=== PATIENT | male | born 1940 | race Caucasian/White ===

== ENCOUNTER 2016-05-22 16:40 | Inpatient (IN) | payer MEDICARE, OTHER ==
[~2016-05-22] VITALS: Ht 172.7 cm; Wt 79.5 kg
[2016-05-22] MEDS ORDERED: ACETAMINOPHEN 650 MG SUPP PR STA (16:47)
[2016-05-22] MEDS ORDERED: SODIUM CHLORIDE 0.9% 1L BAG IV* STA (16:47)
[2016-05-22] MEDS ORDERED: VANCOMYCIN 1 GM (PMX) 250 ML IVPB ONE (17:00)
[2016-05-22] MEDS ORDERED: CEFEPIME 1GM/50 ML (PMX) 50 ML IVPB ONE (17:00)
[2016-05-22] MEDS ORDERED: LIDOCAINE 1% (MDV) 20 ML INJ SC ONE (17:00)
[2016-05-22 17:10] LABS: HEMOGLOBIN 15.3 g/dl (14.0-18.0); MEAN CORPUSCULAR HEMOGLOBIN 31.9 pg (29.0-33.0); MEAN CORPUSCULAR HGB CONC 33.9 g/dl (32.0-37.0); MEAN CORPUSCULAR VOLUME 94.1 fl (82.0-101.0); MEAN PLATELET VOLUME 9.1 fl (7.4-10.4); PLATELET COUNT 274 10^3/UL (140-440); RED BLOOD COUNT 4.78 10^6/ul (4.70-6.10); RED CELL DISTRIBUTION WIDTH 14.6 % (11.5-14.5); UNCORRECTED WBC 34.5 10^3/ul (4.8-10.8); WHITE BLOOD COUNT 34.5 10^3/ul (4.8-10.8)
[2016-05-22 17:18] LABS: CONDITION 1; LH ANALYZER COMMENTS 1; SUSPECT 1
[2016-05-22 17:21] LABS: ADD UMIC YES; INR 1.16; POTASSIUM 5.4 mmol/L (3.5-5.1); PROTIME 14.8 Sec (12.2-14.2); PT RATIO 1.2; URINE BILIRUBIN (Dip) 2+ (NEGATIVE); URINE BLOOD (Dip) 3+ (NEGATIVE); URINE COLOR DK. RED (YELLOW); URINE KETONES (Dip) TRACE (NEGATIVE); URINE LEUKOCYTE ESTERASE (Dip) 3+ (NEGATIVE); URINE NITRITE (Dip) POSITIVE (NEGATIVE); URINE TOTAL PROTEIN (Dip) 4+ (NEGATIVE); URINE UROBILINOGEN (Dip) 2.0 E.U./dL (0.1-1.0)
--- NOTE | 2016-05-22 17:21 | RADRPT ---
PROCEDURE: XR Chest. CLINICAL INDICATION: Cough. Sepsis. TECHNIQUE: Single frontal view. COMPARISON: None. FINDINGS: There is mild atelectasis at the lung bases. The lungs are otherwise clear. There is a right subcl malorie vein catheter with the tip in the cavoatrial junction. The heart size is normal. There is no pleural effusion. There is no pneumothorax. IMPRESSION: 1. Mild atelectasis at the lung bases. 2. Right subclavian vein catheter tip in the cavoatrial junction. 3. No pneumothorax. 4. Otherwise normal chest x-ray. RPTAT: QQ .Kevin Montgomery MD, MD Date Time Electronically viewed and signed by .Kevin Montgomery MD, MD on 05/22/2016 17:21 .R/
[2016-05-22 17:22] LABS: PARTIAL THROMBOPLASTIN TIME 35.6 Sec (25.0-35.0)
[2016-05-22 17:23] LABS: ALBUMIN/GLOBULIN RATIO 0.83; BILIRUBIN,INDIRECT 0.8 mg/dl (0-1.1); BILIRUBIN,TOTAL 0.8 mg/dl (0.2-1.3); CREATININE 3.45 mg/dl (0.61-1.24); TOTAL PROTEIN 6.6 g/dl (6.1-8.1)
[2016-05-22 17:24] LABS: CALCIUM 9.3 mg/dl (8.4-10.2)
[2016-05-22 17:31] LABS: BACTERIA,URINE MANY; ICTOTEST NEGATIVE (NEGATIVE); SQUAMOUS EPITHELIAL CELL,UR RARE; URINE RBCS >200 /HPF ([, 0])
[2016-05-22] MEDS ORDERED: ONDA-43 PO (17:34)
[2016-05-22] MEDS ORDERED: LORA0.5T PO (17:35)
[2016-05-22] MEDS ORDERED: ACET325T33 PO (17:37)
[2016-05-22] MEDS ORDERED: OXYC-279 PO (17:39)
[2016-05-22] MEDS ORDERED: FAMO20TA18 PO (17:40)
[2016-05-22] MEDS ORDERED: TYL500 PO (17:40)
[2016-05-22] MEDS ORDERED: ATOR40TA68 PO (17:41)
[2016-05-22 17:44] LABS: TROPONIN-I 0.769 ng/ml (0.00-0.12)
[2016-05-22] MEDS ORDERED: METO25TA7 PO (17:45)
[2016-05-22] MEDS ORDERED: ENOX40DI14 SC (17:46)
[2016-05-22] MEDS ORDERED: BENA1TAB PO (17:50)
[2016-05-22] MEDS ORDERED: BENA20TA65 PO (17:51)
[2016-05-22] MEDS ORDERED: BENA10TA48 PO (17:53)
[2016-05-22] MEDS ORDERED: ASPIRIN 81 MG TAB PO ONE (18:00)
[2016-05-22 18:13] LABS: LYMPHOCYTES # 1.4 10^3/ul (0.8-2.9); MONOCYTE # 1.7 10^3/ul (0.3-0.9); NEUTROPHIL # 22.8 10^3/ul (1.6-7.5)
[2016-05-22] MEDS ORDERED: ASPIRIN 300 MG SUPP PR ONE (18:30)
--- NOTE | 2016-05-22 19:48 | ERA ---
ER Documentation Chief Complaint Date/Time DATE: 05/22/16 TIME: 19:33 Chief Complaint bib ra 39 for hypotension, fever and sob HPI 75-year-old man brought in by EMS from alf for fever, cough, and hypotension. Systolic blood pressure was about 76 mmHg at the scene. He was recently diagnosed and treated for urinary tract infection. He has had no vomiting or diarrhea no complaints of chest pain or shortness of breath. HPI was supplemented by reviewing past medical history, reviewing alf notes , speaking to EMS at the scene, and nursing staff. ROS All systems reviewed and are negative except as per history of present illness. Medications Home Meds Reported Medications Benazepril Hcl* (Benazepril Hcl*) 10 Mg Tablet, 10 MG PO DAILY, #30 TAB HOLD IF SBP<110, HR<60 05/22/16 Enoxaparin Sodium* (Lovenox*) 40 Mg/0.4 Ml Syringe, 40 MG SC Q24H, SYR 05/22/16 Metoprolol Succinate* (Toprol XL*) 25 Mg Tab.sr.24h, 25 MG PO BID, #30 TAB HOLD IF SBP<110,HR<60 05/22/16 Atorvastatin* (Atorvastatin*) 40 Mg Tablet, 40 MG PO QHS, #30 TAB 05/22/16 Famotidine* (Famotidine*) 20 Mg Tablet, 20 MG PO BID, #60 TAB 05/22/16 Acetaminophen* (Tylenol*) 500 Mg Tab, 1000 MG PO Q4H Y for PAIN 4-610, TAB 05/22/16 Oxycodone HCl/Acetaminophen (Percocet 5-325 mg Tablet) 1 Each Tablet, 1 EACH PO Q3H Y for PAIN 7-9/10, TAB 05/22/16 Acetaminophen* (Tylenol*) 325 Mg Tablet, 650 MG PO Q4H Y for MILD PAIN LEVEL 1-3 , TAB FOR FEVER 100 AND ABOVE 05/22/16 Lorazepam* (Lorazepam*) 0.5 Mg Tablet, 0.5 MG PO Q6 Y for ANXIETY, TAB 05/22/16 Ondansetron Hcl* (Zofran*) 4 Mg Tab, 4 MG PO Q4H Y for NAUSEA AND OR VOMITING, TAB 05/22/16 Discontinued Reported Medications Benazepril Hcl* (Lotensin*) 20 Mg Tablet, 20 MG PO DAILY, #30 TAB 05/22/16 Benazepril/Hydrochlorothiazide (Lotensin Hct 10-12.5 mg Tablet) 1 Each Tablet, 1 TAB PO DAILY, #30 TAB HOLD IF SBP<110,HR<60 05/22/16 Allergies Allergies: Coded Allergies: No Known Allergy (Unverified , 05/22/16) PMhx/Soc History of recent CVA with dense left hemiparesis, coronary artery disease with previous myocardial infarction, ischemic cardiomyopathy with a left ventricular ejection fraction of 25%, peripheral vascular disease, chronic kidney disease, hypertension History of Surgery: Yes (orif) Anesthesia Reaction: No Hx Neurological Disorder: Yes (cva c left side weakness) Hx Respiratory Disorders: No Hx Cardiac Disorders: Yes (cad, previous mi, hld, htn) Hx Psychiatric Problems: No Hx Alcohol Use: No Hx Substance Use: No Hx Tobacco Use: No Smoking Status: Never smoker FmHx Family History: No diabetes Physical Exam Vitals Vital Signs Date Time Temp Pulse Resp B/P Pulse Ox O2 Delivery O2 Flow Rate FiO2 05/22/16 17:28 87/54 05/22/16 17:22 95 20 68/53 98 Nasal Cannula 4.0 05/22/16 17:00 Nasal Cannula 4 05/22/16 17:00 98.5 126 33 79/52 95 Physical Exam GENERAL: Elderly, chronically debilitated man, dyspneic, febrile, hypotensive HEENT: Dry mucous membrane, pink conjunctiva, no cervical spine tenderness or step-off deformities, no goiter, no jaundice or icterus, extraocular movements intact without pain. No submandibular induration, and no pharyngeal erythema NEURO: Alert and oriented 1, able to slowly answer simple questions and follow simple commands, left upper and lower extremity hemiparesis, no facial asymmetry , pupils equal round reactive to light CARDIAC: Tachycardic and regular, no murmurs rubs or gallops LUNGS: Clear bilaterally no wheezing crackles or stridor ABDOMEN: Soft nontender, no guarding, no rigidity, no rebound, no psoas sign no obturator sign. Normoactive bowel sounds SKIN: Warm and dry to touch, no abrasions, contusions, or hematomas, no lacerations, no ecchymosis, no target lesions, and without ulcers EXTREMITIES: No clubbing cyanosis or edema, calves are bilaterally symmetrical, no Homans sign, no popliteal cord sign. Distal pulses equal and bilateral PSYCH: Normal affect without agitation or irritability Result Diagram: 05/22/16 1645 05/22/16 1645 Results 24 hrs Laboratory Tests Test 05/22/16 16:45 05/22/16 18:10 Activated Partial Thromboplast Time 35.6Sec Alanine Aminotransferase (ALT/SGPT) 104IU/L Albumin 3.0g/dl Albumin/Globulin Ratio 0.83 Alkaline Phosphatase 116IU/L Anion Gap 26 Aspartate Amino Transf (AST/SGOT) 88IU/L Band Neutrophils % 25.0% Blood Morphology Comment Blood Urea Nitrogen 47mg/dl Calcium Level 9.3mg/dl Carbon Dioxide Level 17mmol/L Chloride Level 103mmol/L Creatinine 3.45mg/dl Direct Bilirubin 0.00mg/dl Globulin 3.60g/dl Glucose Level 162mg/dl Hematocrit 45.0% Hemoglobin 15.3g/dl INR International Normalized Ratio 1.16 Indirect Bilirubin 0.8mg/dl Lactic Acid Level 5.7mmol/L 2.9mmol/L Lipase 51U/L Lymphocytes # 1.410^3/ul Lymphocytes % 4.0% Mean Corpuscular Hemoglobin 31.9pg Mean Corpuscular Hemoglobin Concent 33.9g/dl Mean Corpuscular Volume 94.1fl Mean Platelet Volume 9.1fl Monocytes # 1.710^3/ul Monocytes % 5.0% Neutrophils # 22.810^3/ul Neutrophils % 66.0% Platelet Count 71483^3/UL Potassium Level 5.4mmol/L Prothrombin Time 14.8Sec Prothrombin Time Ratio 1.2 Red Blood Count 4.7810^6/ul Red Cell Distribution Width 14.6% Sodium Level 141mmol/L Total Bilirubin 0.8mg/dl Total Protein 6.6g/dl Troponin I 0.769ng/ml Urine Bacteria MANY Urine Bilirubin 2+ Urine Clarity CLOUDY Urine Color DK. RED Urine Glucose 0.1%% Urine Hemoglobin 3+ Urine Ictotest NEGATIVE Urine Ketones TRACE Urine Leukocyte Esterase 3+ Urine Microscopic RBC >200/HPF Urine Microscopic WBC >200/HPF Urine Nitrite POSITIVE Urine Specific [place] 1.015 Urine Squamous Epithelial Cells RARE Urine Total Protein 4+ Urine Urobilinogen 2.0 E.U./dL Urine pH 8.5 White Blood Count 34.510^3/ul Current Medications Medications (Trade) Dose Ordered Sig/Aretha Route PRN Reason Start Time Stop Time Status Last Admin Dose Admin Sodium Chloride (NS) 3,000 ml BOLUS OVER 2 HOURS STAT IV* 05/22/16 16:47 05/22/16 16:51 DC 05/22/16 17:12 Acetaminophen 650 mg 650 mg ONCE STAT ND 05/22/16 16:47 05/22/16 16:51 DC Vancomycin HCl 250 ml @ 125 mls/hr ONCE ONCE IVPB 05/22/16 17:00 05/22/16 19:07 DC 05/22/16 18:17 Cefepime HCl (Maxipime 1gm/50 ml (Pmx)) 50 ml @ 100 mls/hr ONCE ONCE IVPB 05/22/16 17:00 05/22/16 17:29 DC 05/22/16 17:14 Lidocaine (Xylocaine 1% (Mdv) 20 ml) 20 ml ONCE ONCE SC 05/22/16 17:00 05/22/16 17:01 DC Aspirin (Aspirin) 162 mg ONCE ONCE PO 05/22/16 18:00 05/22/16 18:07 DC Aspirin (Aspirin) 300 mg ONCE ONCE ND 05/22/16 18:30 05/22/16 18:31 DC 05/22/16 18:16 Procedures/MDM Peripheral IV line was established although patient was hypotensive and dehydrated so I placed right subclavian central line. Patient was febrile. Blood and urine cultures have been ordered results are pending I will follow- up. Wilkerson catheter was placed. Central Line Placement by me: Patient consented, sterilely draped, full prep, gown, glove, mask, time out performed. Anesthesia: 1% lidocaine locally Location: Right subclavian vein Device: Multiple lumen Technique: Seldinger technique. Secured with suture. Results: Venous return from all ports with easy saline flush. No complications. The entire Guide wire retrieved and disposed of. Chest X-ray 1V Interpreted by me: Central line in right SVC, Normal soft tissue , No evidence of pneumothorax. No acute infiltrates, no end of the diaphragm I administered over 30 cc/kg intravenous normal saline for sepsis. Patient also received cefepime 1 g IV and vancomycin 1 g IV. For fever patient received acetaminophen 650 mg per rectum EKG performed, read by me revealed a sinus tachycardia at 121 bpm, left axis deviation, right ventricular conduction delay with a QRS duration of 104 ms, no concerning ST elevations or depressions noted. CBC reveals leukocytosis secondary to sepsis at 35, electrolytes were abnormal with mild hyperkalemia 5.4 and an elevated BUN/creatinine ratio of 47/3.5 consistent with dehydration, liver function tests were unremarkable, urine analysis was positive for infection. Troponin was positive at 0.77. Initial lactic acid level is elevated at 5.7 later down to 2.9 after medical intervention. Patient's infectious symptoms have not stabilized and the patient is at risk of rapid decompensation. The patient will be admitted for careful hydration, antibiotic therapy, and infectious source control. Severe Sepsis Assessment: Infectious Source: Bladder End organ damage indicated by: [Lactate > 2.0 mmol/L Hypotension( SBP < 90 or >40 mmHG drop or MAP < 65) [employer] > 2.0 Severe Sepsis Managment: Blood Cultures X 2 before broad spectrum antibiotics initiated within 3 hours of recognition. 30 ml/kg NS bolus Completed Initial Lactate: 5.7 Repeat Lactate 2.9 Critical Care: Time: 50 minutes, this was time separate from other procedures Treatments/Evaluations: Emergent fluid management, while maintaining close respiratory support. Immediate broad spectrum antibiotic therapy. Simultaneous assessment for possible sources in order to direct therapy. Consideration for invasive and chemical support to prevent respiratory or cardiac collapse. Septic Shock Assessment (1 hour post 30 ml/kg fluid bolus): Hypotension (SBP < 90 or 40 mmHg drop, MAP < 65): Yes Lactic acid > 4.0 yes Perfusion Reassessment for Septic Shock: Temp 80, Pulse 70, RR 18, BP 100/80 Heart Exam: Regular rate and rhythm at 70 Lung Exam: Clear Capillary Refill: Less than 2 so Peripheral Pulses: Radially present Skin: [place] and dry Hypotensive Treatment (not required for isolated lactic acid elevation): Comfort Care: No Central LIne: Right subclavian vein Vasopressor started: Not indicated at this I considered further perfusion assessment with continued IV fluid hydration and antibiotics Accepting Care Team: Current data and ongoing care discussed. Time: Time of admission Primary Provider: Dr. Jordi MENDES Consulting: Infectious disease Outstanding Data: none Departure Diagnosis: Primary Impression: Septic shock Additional Impressions: UTI (urinary tract infection) Qualified Code: N30.00 - Acute cystitis without hematuria Dehydration Acute kidney injury superimposed on chronic kidney disease Non-STEMI (non-ST elevated myocardial infarction) Stroke Qualified Code: I63.329 - Cerebrovascular accident (CVA) due to thrombosis of anterior cerebral artery, unspecified blood vessel laterality Condition: Serious ADRI MOSQUEDA MD May 22, 2016 19:45
[2016-05-22] MEDS ORDERED: NITROGLYCERIN (SL) 0.4 MG TAB SL PRN (22:30)
[2016-05-22] MEDS ORDERED: morphine 2 MG INJ IV PRN (22:30)
[2016-05-22] MEDS ORDERED: LORAZEPAM 2 MG INJ IV PRN (22:30)
[2016-05-22] MEDS ORDERED: NACL 0.9% 3 ML SYG IV SCH (22:30)
[2016-05-22] MEDS ORDERED: ONDANSETRON 4 MG INJ IV PRN (22:30)
[2016-05-22] MEDS ORDERED: ACETAMINOPHEN 325 MG TAB PO PRN (22:30)
[2016-05-22] MEDS ORDERED: DOCUSATE SODIUM 100 MG CAP PO PRN (22:30)
[2016-05-22] MEDS ORDERED: VANCOMYCIN IV PER PHARMACY XX SCH (22:30)
[2016-05-22] MEDS ORDERED: MAGNESIUM HYDROXIDE 30ML CUP PO PRN (22:30)
[2016-05-22] MEDS ORDERED: BISACODYL 10 MG SUPP PR PRN (22:30)
[2016-05-22] MEDS ORDERED: SOD CHLORIDE 0.9% 1,000 ML IV STA (22:31)
--- NOTE | 2016-05-22 23:06 | RADRPT ---
PROCEDURE: US Renal CLINICAL INDICATION: Rule out hydronephrosis, abnormal labs TECHNIQUE: Multiple sonographic images of the kidneys and bladder were obtained. Evaluation of th e kidneys and bladder was performed as well with gonzalez scale and color and Doppler evaluation using a curved array transducer. The images were reviewed on a high-resolution PACS workstation. COMPARISON: No prior studies are available for comparison. FINDINGS: The kidneys are well visualized. The right kidney measures 9.8 cm in length. The left kidney measure s 10.63 cm in length. There is appearance of renal cortical thinning bilaterally. There is normal ec hogenicity within the parenchyma of the kidneys bilaterally. There is no mass, calculus, or obstruct tariq uropathy. No perinephric fluid collection is seen. Wilkerson catheter in bladder. IMPRESSION: Bilateral renal cortical thinning. No hydronephrosis bilaterally. RPTAT: HJES .Stevan Whiting MD, Date Time Electronically viewed and signed by .Stevan Whiting MD, on 05/22/2016 23:06 .S/
[2016-05-23] MEDS ORDERED: VANCOMYCIN 500MG/NS (PMX) 100 ML IVPB ONE
[2016-05-23 00:15] LABS: CK-MB 3.31 ng/ml (0.0-2.4); TROPONIN-I 0.386 ng/ml (0.00-0.12)
[2016-05-23] MEDS: SOD CHLORIDE 0.9% 1,000 ML IV SCH ×3 (01:35→16:49)
[2016-05-23] MEDS ORDERED: HEPARIN 5,000 UNIT/0.5 ML SYG SC SCH (06:00)
[2016-05-23 06:15] LABS: INR 1.11; PROTIME 14.3 Sec (12.2-14.2); PT RATIO 1.1
[2016-05-23 06:16] LABS: PARTIAL THROMBOPLASTIN TIME 31.7 Sec (25.0-35.0)
[2016-05-23 06:21] LABS: HEMATOCRIT 36.4 % (42.0-52.0); HEMOGLOBIN 12.5 g/dl (14.0-18.0); LYMPHOCYTES # 0.7 10^3/ul (0.8-2.9); LYMPHOCYTES % 4.4 % (15.0-51.0); MEAN CORPUSCULAR HEMOGLOBIN 32.4 pg (29.0-33.0); MEAN CORPUSCULAR HGB CONC 34.3 g/dl (32.0-37.0); MEAN CORPUSCULAR VOLUME 94.7 fl (82.0-101.0); MEAN PLATELET VOLUME 8.8 fl (7.4-10.4); MONOCYTE # 0.5 10^3/ul (0.3-0.9); MONOCYTES % 3.1 % (0.0-11.0); NEUTROPHIL # 15.9 10^3/ul (1.6-7.5); NEUTROPHILS % 92.5 % (39.0-77.0); PLATELET COUNT 233 10^3/UL (140-440); RED BLOOD COUNT 3.84 10^6/ul (4.70-6.10); RED CELL DISTRIBUTION WIDTH 15.2 % (11.5-14.5); UNCORRECTED WBC 17.2 10^3/ul (4.8-10.8); WHITE BLOOD COUNT 17.2 10^3/ul (4.8-10.8)
[2016-05-23 06:27] LABS: CONDITION 1; LH ANALYZER COMMENTS 1; SUSPECT 1
[2016-05-23 06:51] LABS: PHOSPHORUS 4.1 mg/dl (2.5-4.9)
[2016-05-23 06:52] LABS: MAGNESIUM 2.2 mg/dl (1.7-2.5)
[2016-05-23 06:54] LABS: ALBUMIN 2.2 g/dl (3.3-4.9)
[2016-05-23 06:55] LABS: POTASSIUM 4.7 mmol/L (3.5-5.1)
[2016-05-23 06:57] LABS: ALBUMIN/GLOBULIN RATIO 0.7; BILIRUBIN,INDIRECT 0.4 mg/dl (0-1.1); BILIRUBIN,TOTAL 0.4 mg/dl (0.2-1.3); CALCIUM 8.2 mg/dl (8.4-10.2); CREATININE 2.6 mg/dl (0.61-1.24); TOTAL PROTEIN 5.3 g/dl (6.1-8.1)
[2016-05-23 07:07] LABS: CK-MB 3.93 ng/ml (0.0-2.4); TROPONIN-I 0.264 ng/ml (0.00-0.12)
[2016-05-23] MEDS: ASPIRIN 81 MG TAB PO SCH (10:26)
[2016-05-23] MEDS: CEFEPIME 2GM/50 ML (PMX) 50 ML IVPB SCH (10:26)
[2016-05-23] MEDS: FAMOTIDINE 20 MG TAB PO SCH (10:26)
--- NOTE | 2016-05-23 13:14 | HP ---
DATE OF ADMISSION: 05/22/2016 CHIEF COMPLAINT ON ADMISSION: [facility]ot[facility]. HISTORY OF PRESENTING ILLNESS: This is a 75-year-old male with a recent CVA with dense left hemipar esis, coronary artery disease, status post old myocardial infarction and stent placement in the past , ischemic cardiomyopathy with ejection fraction of 25%, peripheral vascular disease, chronic kidney disease, reported stage III; however, latest creatinine was 0.8, recent left hip fracture and left clavicle fracture status post ORIF recently diagnosed from a local hospital approximately a week ago to a [facility] who was [facility] from [facility] with hypotension. Upon arrival in the emergency department, the patient was hypotensive in the 70s, 60s. He had a cent ral line placed, started on IV fluids. His white blood cell count came back at 30,000. He was note d to also have gross hematuria in the Wilkerson catheter he had placed at the [facility]. The patient himself is a very poor historian. Even this morning he is alert and oriented to place a nd to person, but he is unaware of the reasons why he has been transferred to the hospital. He addison es any chest pain, shortness of breath, nausea, vomiting, abdominal pain. According to the notes fr om [facility] facility he has been having issues with urinary retention and urinary output requ iring for him to have a Wilkerson catheter kept in place. He had laboratory data drawn apparently a wee k ago with a negative UA, white blood cell count around 12,000, and a creatinine of 0.8. He has bee n on Lovenox for DVT prophylaxis post ORIF. As a cardiac patient he is on multiple blood pressure m edications. He was started on broad spectrum antibiotics along with IV fluids. His troponin came b ack elevated, but his EKG is stable. This morning, his blood pressure is much more stable, systolic in the 100s, heart rate in the 80s. This is after 4 liters boluses of normal saline followed by no rmal saline at 125 mL an hour. He is afebrile. His white blood cell count is trending down and his blood cultures are positive for gram-negative rods, likely urinary tract infection, cystitis with g logan negative rods bacteremia and sepsis. He was briefly upgraded to ICU overnight due to his hypote nsion but now downgraded back to telemetry. Again, all the history is obtained from the chart from [facility]. The patient is a very poor historian. ALLERGIES: NO KNOWN ALLERGIES. PAST MEDICAL HISTORY: 1. Status post left hip open reduction internal fixation approximately 10 days ago. 2. Hypertension. 3. Coronary artery disease. 4. Ischemic cardiomyopathy. 5. 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 6. 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 7. Left clavicle fracture. 8. Chronic kidney disease per records, stage III. 9. Gastroesophageal reflux disease. 10. Anxiety disorder. 11. Dysarthria. 12. Hyperlipidemia. 13. Peripheral vascular disease. 14. Congestive heart failure, systolic dysfunction, ejection fraction 25%, chronic. PAST SURGICAL HISTORY: Status post open reduction internal fixation of the left hip 10 days ago. SOCIAL HISTORY: Patient is a nonsmoker. Per record he has a history of alcohol abuse prior to his stroke. OUTPATIENT MEDICATIONS: 1. Lovenox 20 mg subcutaneously daily. 2. Atorvastatin 40 mg p.o. at bedtime. 3. Benazepril 10 mg p.o. daily. 4. Metoprolol 25 mg p.o. b.i.d. 5. Tylenol 650 mg p.o. q.4h. p.r.n. pain. 6. Tylenol 100 mg p.o. q.4h. p.r.n. pain. 7. Lorazepam 0.5 mg p.o. 6 hours p.r.n. anxiety. 8. Percocet 5/325 one tab p.o. q.3 hours p.r.n. pain. 9. Pepcid 20 mg p.o. b.i.d. 10. Zofran 4 mg p.o. q. 4 hours p.r.n. nausea, vomiting. REVIEW OF SYSTEMS: Very limited and as per HPI. PHYSICAL EXAMINATION: VITAL SIGNS: Temperature is 98.6, heart rate 61, sinus rhythm, blood pressure 104/64, respiratory r ate of 24. Patient is saturating 100% on 2 liters nasal cannula currently. GENERAL: He is alert. He is oriented x2 at least. He is lethargic, however. HEENT: Pupils are equally round and reactive to light. Extraocular muscles are intact. Anicteric sclerae. NECK: No JVD, no thyromegaly noted. HEART: Regular rate and rhythm. No murmur, rubs or gallops. LUNGS: Clear to auscultation bilaterally. ABDOMEN: Soft, nondistended, however, he does have suprapubic tenderness to palpation. Wilkerson cathet er in place with gross hematuria. EXTREMITIES: No edema, clubbing or cyanosis. NEUROLOGIC: The patient does have left hemiparesis noted. He is moving his right freely, but he is generally weak. LABORATORY DATA: White blood cell count 17.2 down from 34.5, hemoglobin of 12.5, hematocrit of 36.4 , platelet count 233. His bandemia is resolved. He had 25% bands yesterday on admission. Chemistr y with a sodium of 145, potassium 4.7, chloride 115, bicarbonate 25, BUN 50, creatinine of 2.6 down from 3.4. Lactate has normalized to 1.9, was 5.7 on presentation, glucose of 83, calcium 8.2, phosp horus 4.1, magnesium 2.2. Liver function testing with total bilirubin of 0.4, AST 57, ALT 76, alkal ine phosphatase of 73. BNP is 35,000. Total protein 5.3, albumin 2.2. Troponin is trending down f rom 0.76 down to 0.26 currently. INR is 1.11, PT 14.3, PTT 31.7. Urinalysis is grossly positive olivia udy, positive nitrites, positive leukocyte esterase and many bacteria. Blood culture gram-negative rods x2. ELECTROCARDIOGRAM: On admission, sinus tachycardia, currently is sinus rhythm. RADIOLOGICAL DATA: Chest x-ray showed mild atelectasis at the lung bases. There is a right subclav luan central line in place, no pneumothorax seen. Chest x-ray is otherwise clear on admission. Valeria l ultrasound showing bilateral cortical thinning, no hydronephrosis, but again gross hematuria noted in the Wilkerson catheter but will be changed today. ASSESSMENT AND PLAN: This is a 75-year-old male with: 1. Sepsis, status post episode of septic shock, resolved now secondary to urinary tract infection a nd cystitis. Wilkerson catheter will be changed. Continue current antibiotics, cefepime and vancomycin . Blood cultures are already positive with gram negative rods. Urine cultures are pending likely i s going to be the same organism and will tailor antibiotics down from there. Wilkerson catheter will be changed. The patient currently is downgraded back to telemetry since his blood pressure is stable and he is out of the shock state. 2. Urinary tract infection, cystitis with acute kidney injury. Wilkerson catheter will be changed. [place] current antibiotics. Follow up urine culture. 3. Acute kidney injury on reported chronic kidney disease; however, his outpatient creatinine was 0 .8 a week ago. Again, will change the Wilkerson catheter, renal ultrasound does not show any obstructiv e disease and will monitor his urine output closely. If he has persistent hematuria, I will contact urology to see the patient. 4. Elevated troponin with known coronary artery disease, status post stent placement and known isch emic cardiomyopathy. His troponin is trending down. We will keep trending it until it normalizes. I will have a cardiology consult with Dr. Georges. Echocardiogram is pending as a repeat. The serina ent is known to have systolic dysfunction with ejection fraction of 25%. 5. Hypertension with episode of hypotension. All blood pressure medications are on hold currently. We will resume when his blood pressure is more stable. 6. Hyperlipidemia. Continue statin therapy. 7. Peripheral vascular disease. Continue current treatment. Aspirin is on hold for now due to benjamin oing bleeding. 8. Status post left hip open reduction internal fixation. The patient does have hip precautions, a pparently still has a pillow between his legs currently. We will resume physical therapy once stabl e. Also, holding off the Lovenox for now due to the ongoing hematuria and acute kidney injury. 9. 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 Physical therapy when more s table. 10. Leukocytosis in setting of cystitis and bacteremia, improving. 11. Congestive heart failure with systolic dysfunction. We will monitor his volume status very olivia sely. For now he is tolerating normal saline at 100 mL an hour. Follow up additional cardiology re commendations. 12. Gastroesophageal reflux disease. Continue Pepcid. 13. Prophylaxis. SCDs to lower extremity for DVT prophylaxis. Pepcid for GI prophylaxis. DISPOSITION: The patient is now telemetry status again. We will monitor him closely. We will rep eat his blood cultures in the next 24 hours and continue current antibiotics. Dictated By: GETACHEW HER/ILDEFONSO Conf#: [id number] [facility]#: [id number]
--- NOTE | 2016-05-23 15:01 | RADRPT ---
Echocardiogram Report Patient Name: SENG ESCAMILLA Gender: Male Date: 1940 Study Date: 23-May-2016 Copy Coordinator: Arnold Savage RDCS Location: Ref. Physician: JUDY DELGADO Quality: Technically Difficult Study Procedures: Transthoracic echocardiogram with complete 2D, M-Mode, and doppler examination. Indications: Evaluate Left Ventricular function. 2D/M Mode Doppler Measurement Value Normal Ranges Measurement Value Normal Ranges LVIDd 2D 5.3 3.5 - 5.6 cm AV Peak Esteban 1.1 m/sec LVIDs 2D 4.9 2.1 - 4.1 cm AV Peak PG 5.1 mmHg LVPWd 2D 1.1 0.6 - 1.1 cm LVOT Peak Esteban 0.9 m/sec IVSd 2D 0.9 0.6 - 1.1 cm LVOT Peak PG 3.0 mmHg AoR Diam 2D 2.9 2.0 - 3.7 cm MV E Peak Esteban 0.6 m/sec EDV 2D 135.2 cm3 MV A Peak Esteban 0.8 m/sec ESV 2D 114.9 cm3 MV E/A 0.7 LA Dimen 2D 3.7 2.3 - 4.0 cm MV Decel Time 198 msec MV Decel Hitchcock 3 MV E/A 0.7 Findings Left Ventricle: Normal left ventricular cavity size. Normal left ventricular wall thickness. Moderate left ventricular systolic dysfunction. Ejection fraction is visually estimated at 35 %. Tissue Doppler/Mitral Doppler indices are consistent with impaired relaxation (Stage I diastolic dysfunction). Multiple segmental wall motion abnormalities. Right Ventricle: Normal right ventricular size. Not well visualized. Left Atrium: The left atrium is normal in size. Right Atrium: The right atrium is normal in size. Mitral Valve: Mitral valve leaflets appear mildly thickened. Trace mitral regurgitation. Aortic Valve: Aortic cusps appear mildly calcified. Trace aortic valve regurgitation. Tricuspid Valve: Normal appearance and function of the tricuspid valve with trace physiologic regurgitation. Pericardium: Normal pericardium with no significant pericardial effusion. Aorta: Normal aortic root. IVC: Normal size and normal respiratory collapse consistent with normal right atrial pressure. Conclusions 1.Normal left ventricular cavity size. Normal left ventricular wall thickness. Moderate left ventricular systolic dysfunction. Ejection fraction is visually estimated at 35 %. Tissue Doppler/Mitral Doppler indices are consistent with impaired relaxation (Stage I diastolic dysfunction). Multiple segmental wall motion abnormalities. 2.Normal right ventricular size. Not well visualized. 3.The left atrium is normal in size. 4.The right atrium is normal in size. 5.No significant valvular stenosis or regurgitation seen. 6.Normal pericardium with no significant pericardial effusion. Electronically Signed By: Serafin Georges 23-May-2016 15:00:14 -0800 Patient Name: SENG ESCAMILLA Study Date: 23-May-[id number]
[2016-05-23 15:38] VITALS: TEMP 98.5
[2016-05-23 16:30] VITALS: BP 128/66; PULSE 74; PULSE 78; RESP 18
[2016-05-23 16:39] VITALS: PULSE 88
[2016-05-23 16:44] VITALS: Ht 172.7 cm; Wt 79.5 kg
--- NOTE | 2016-05-23 19:56 | CONS ---
Date/Time of Note Date/Time of Note DATE: 05/23/16 TIME: 19:48 Assessment/Plan Assessment/Plan Additional Assessment/Plan Severe sepsis with bacteremia Elevated troponin Cardiomyopathy with ejection fraction 35% CAD ERIC CVA -Patient's elevated troponin likely secondary to severe sepsis, acute kidney injury, congestive heart failure. He denies any chest pain or shortness of breath and troponins are trending down. Would continue aspirin and statin therapy if no contraindication. No beta blockers at the current time given blood pressure has been labile and no SUMAN inhibitor is as given the above as well as acute kidney injury. Continue antibiotics and IV fluids as long as respiratory status remained stable. Consultation Date/Type/Reason Admit Date/Time May 22, 2016 at 18:18 Type of Consultation: cv Reason for Consultation Elevated troponin Hx of Present Illness This is a 75-year-old male with past medical history of CVA, recent hip fracture , coronary artery disease and congestive heart failure who was brought to the emergency room secondary to altered mental status and hypotension. Patient with severe sepsis. Patient given broad-spectrum antibiotics and IV fluids with significant improvement in mental status as well as blood pressure. Laboratory studies demonstrated elevated troponin and for this reason cardiology consultation was requested. Patient denies any chest pain, shortness of breath or palpitations or dizziness. He doesn't a history of coronary artery disease with PCI many years ago. As per the son at bedside, patient has not been following up with the physician on a regular basis. 12 point review of systems was performed with all pertinent positives and negatives mentioned above and all else is negative Past Medical History CVA Medical History: congestive heart failure, coronary artery disease, hypertension, renal disease Past Surgical History Orthopedic Surgery Past Surgical Hx: angioplasty Family History Significant Family History: no pertinent family hx Social History Smoking Status: Never smoker Other Social History From nursing facility Exam/Review of Systems Vital Signs Vitals Vital Signs Date Time Temp Pulse Resp B/P Pulse Ox O2 Delivery O2 Flow Rate FiO2 05/23/16 17:15 Nasal Cannula 3.0 05/23/16 16:39 88 05/23/16 16:30 97.8 18 128/66 97 05/23/16 04:00 33 Intake and Output 05/22/16 05/22/16 05/23/16 15:00 23:00 07:00 Intake Total 4400 ml Output Total 200 ml Balance 4200 ml Exam But both follows commands, able to give history, no apparent distress Constitutional: alert Head: normocephalic Neck: supple Respiratory: other (course breath sounds bilaterally, no wheezes) Cardiovascular: other, regular rate and rhythm Gastrointestinal: bowel sounds, non-tender, soft Extremities: edema Results Result Diagram: 05/23/16 0545 05/23/16 0545 Results 24 hrs Laboratory Tests Test 05/22/16 20:45 05/22/16 23:00 05/23/16 05:45 05/23/16 08:45 Lactic Acid Level 1.9 1.4 B-Type Natriuretic Peptide 71128 H Creatine Kinase 44 39 Creatine Kinase Index 7.5 10.1 Creatinine Kinase MB (Mass) 3.31 H 3.93 H Troponin I 0.386 *H 0.264 *H Activated Partial Thromboplast Time 31.7 Alanine Aminotransferase (ALT/SGPT) 76 H Albumin 2.2 L Albumin/Globulin Ratio 0.70 Alkaline Phosphatase 73 Anion Gap 14 # Aspartate Amino Transf (AST/SGOT) 57 H Basophils # 0.0 Basophils % 0.0 Blood Morphology Comment Blood Urea Nitrogen 50 H Calcium Level 8.2 L Carbon Dioxide Level 21 Chloride Level 115 H Creatinine 2.60 H Direct Bilirubin 0.00 Eosinophils # 0.0 Eosinophils % 0.0 Globulin 3.10 Glucose Level 83 # Hematocrit 36.4 L Hemoglobin 12.5 L INR International Normalized Ratio 1.11 Indirect Bilirubin 0.4 Lymphocytes # 0.7 L Lymphocytes % 4.4 L Magnesium Level 2.2 Mean Corpuscular Hemoglobin 32.4 Mean Corpuscular Hemoglobin Concent 34.3 Mean Corpuscular Volume 94.7 Mean Platelet Volume 8.8 Monocytes # 0.5 Monocytes % 3.1 Neutrophils # 15.9 H Neutrophils % 92.5 H Nucleated Red Blood Cells # 0.0 Nucleated Red Blood Cells % 0.0 Phosphorus Level 4.1 Platelet Count 233 Potassium Level 4.7 Prothrombin Time 14.3 H Prothrombin Time Ratio 1.1 Red Blood Count 3.84 L Red Cell Distribution Width 15.2 H Sodium Level 145 H Total Bilirubin 0.4 Total Protein 5.3 #L White Blood Count 17.2 #H Medications Medications Current Medications Cefepime HCl 50 ml @ 100 mls/hr Q24H IVPB Last administered on 05/23/16t 10:26 ; Admin Dose 100 MLS/HR; Start 05/23/16 at 09:00 Sodium Chloride (NS) 1,000 ml @ 100 mls/hr Q10H IV Last administered on 16:49; Admin Dose 100 MLS/HR; Start 05/22/16 at 22:21 Lorazepam (Ativan) 0.5 mg Q6H PRN IV ANXIETY; Start 05/22/16 at 22:30 Ondansetron HCl (Zofran Inj) 4 mg Q6H PRN IV NAUSEA AND/OR VOMITING; Start 02/26 at 22:30 Aspirin (Aspirin) 81 mg DAILY PO Last administered on 05/23/16 10:26; Admin Dose 81 MG; Start 05/23/16 at 09:00 Nitroglycerin (Nitroglycerin (Sl Tab) 0.4 Mg) 1 tab Q5M PRN SL CHEST PAIN; Start 05/22/16 at 22:30 Acetaminophen (Tylenol Tab) 650 mg Q6H PRN PO PAIN LEVEL 1-3 OR FEVER; Start at 22:30 Morphine Sulfate (morphine) 2 mg Q4H PRN IV PAIN LEVEL 7-10; Start 05/22/16 at 22:30 Docusate Sodium (Colace) 100 mg Q12H PRN PO CONSTIPATION; Start 05/22/16 at 22: 30 Magnesium Hydroxide (Milk Of Mag) 30 ml DAILY PRN PO CONSTIPATION; Start at 22:30 Bisacodyl (Dulcolax Supp) 10 mg DAILY PRN [place] CONSTIPATION; Start 05/22/16 at 22 :30 Famotidine (Pepcid) 20 mg DAILY PO Last administered on 05/23/16 10:26; Admin Dose 20 MG; Start 05/23/16 at 09:00 Atorvastatin Calcium (Lipitor) 40 mg QHS PO ; Start 05/23/16 at 21:00 Influenza Virus Vaccine (Fluzone) 0.5 ml ONCE ONCE IM* ; Start 05/25/16 at 09:00 ; Stop 05/25/16 at 09:01 Procedures Procedures ECG done yesterday demonstrates sinus tachycardia at 121 bpm, QRS 104 ms, nonspecific STT wave abnormalities Serafin Georges DO May 23, 2016 19:56
[2016-05-23 20:12] VITALS: PULSE 83
[2016-05-23 20:26] VITALS: BP 136/66; RESP 18
[2016-05-23] MEDS: ATORVASTATIN 40 MG TAB PO SCH (21:09)
[2016-05-24] VITALS (12 sets, daily range): BP systolic 112–152; BP diastolic 59–88; PULSE 67–92; RESP 16–18
[2016-05-24] MEDS: SOD CHLORIDE 0.9% 1,000 ML IV SCH ×2 (02:01→13:08)
[2016-05-24 06:56] LABS: EOSINOPHILS % 0.1 % (0.0-7.0); HEMATOCRIT 34.1 % (42.0-52.0); HEMOGLOBIN 11.8 g/dl (14.0-18.0); LYMPHOCYTES # 0.6 10^3/ul (0.8-2.9); LYMPHOCYTES % 4.6 % (15.0-51.0); MEAN CORPUSCULAR HEMOGLOBIN 32.3 pg (29.0-33.0); MEAN CORPUSCULAR HGB CONC 34.5 g/dl (32.0-37.0); MEAN CORPUSCULAR VOLUME 93.5 fl (82.0-101.0); MEAN PLATELET VOLUME 8.5 fl (7.4-10.4); MONOCYTE # 0.5 10^3/ul (0.3-0.9); MONOCYTES % 3.9 % (0.0-11.0); NEUTROPHILS % 91.4 % (39.0-77.0); PLATELET COUNT 231 10^3/UL (140-440); RED BLOOD COUNT 3.64 10^6/ul (4.70-6.10); RED CELL DISTRIBUTION WIDTH 14.5 % (11.5-14.5)
[2016-05-24 07:04] LABS: CONDITION 1; LH ANALYZER COMMENTS 1
[2016-05-24 07:05] LABS: POTASSIUM 4.1 mmol/L (3.5-5.1)
[2016-05-24 07:08] LABS: CREATININE 1.26 mg/dl (0.61-1.24)
[2016-05-24 07:09] LABS: CALCIUM 8.6 mg/dl (8.4-10.2)
[2016-05-24 07:12] LABS: INR 1.16; PROTIME 14.9 Sec (12.2-14.2); PT RATIO 1.2
[2016-05-24 07:13] LABS: PARTIAL THROMBOPLASTIN TIME 31.8 Sec (25.0-35.0)
[2016-05-24 07:33] LABS: MAGNESIUM 2.1 mg/dl (1.7-2.5); PHOSPHORUS 3.1 mg/dl (2.5-4.9)
[2016-05-24] MEDS: ASPIRIN 81 MG TAB PO SCH (08:34)
[2016-05-24] MEDS: FAMOTIDINE 20 MG TAB PO SCH (08:34)
[2016-05-24] MEDS: CEFEPIME 2GM/50 ML (PMX) 50 ML IVPB SCH ×2 (09:00→10:31)
--- NOTE | 2016-05-24 11:56 | RADRPT ---
PROCEDURE: XR Chest. CLINICAL INDICATION: Shortness of breath TECHNIQUE: Single AP view of the chest were obtained COMPARISON: 05/22/2016 FINDINGS: The heart is moderately enlarged. The pulmonary vasculature are mildly prominent. The aorta demonst rates atherosclerotic calcifications. There are low lung volumes seen with bibasilar mild opacities are stable. A trace left effusion is not excluded. There is no pneumothorax. Right PICC line cat heter terminates in the SVC. Degenerative changes are seen within the thoracic spine. There is no acute osseous abnormality. IMPRESSION: Stable cardiomegaly mild vascular congestion with possible trace left effusion. Low lung volumes mild bibasilar atelectasis. RPTAT: AA .Bora Garcia MD, Date Time Electronically viewed and signed by .Bora Garcia MD, MD on 05/24/2016 11:56 .Abhilash/
--- NOTE | 2016-05-24 12:45 | PN ---
Date/Time of Note Date/Time of Note DATE: 05/24/16 TIME: 12:16 Assessment/Plan VTE Prophylaxis VTE Prophylaxis Intervention: SCD's Lines/Catheters IV Catheter Type (from Nrs): Peripheral IV Urinary Cath still in place: Yes Reason Cath still needed: other (indicate) (ERIC) Assessment/Plan Assessment/Plan 75-year-old male with: 1. Sepsis, status post episode of septic shock, resolved now secondary to urinary tract infection and cystitis. New [place] catheter in place and hematuria resolved Continue cefepime, will d/c Vanco Hemodynamically stable 2. GNR Urinary tract infection, cystitis with acute kidney injury. Final cx pending Continue cefepime until final cx and sensitivities Repeat bld cx pending 3. Acute kidney injury on reported chronic kidney disease; Renal function improving with creatinine down to 1.26 Hematuria improving 4. Elevated troponin with known coronary artery disease, status post stent placement and known ischemic cardiomyopathy. EF 35 % His troponin is trending down. 5. Hypertension with episode of hypotension. All blood pressure medications are on hold currently. We will resume when BP more stable. 6. Hyperlipidemia. Continue statin therapy. 7. Peripheral vascular disease and CAD. Continue current treatment. Resume ASA. 8. Status post left hip hemiarthroplasty. PT eval and treat Resume lovenox now that hematuria resolved and renal function much improved 9. 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 Physical therapy. 10. Leukocytosis in setting of cystitis and bacteremia, improving. 11. Congestive heart failure with systolic dysfunction., EF 35% Volume repleted, will decrease IVF to 75 cc/hr Follow up additional cardiology recommendations. 12. Gastroesophageal reflux disease. Continue Pepcid. Prophylaxis. SCDs to lower extremity for DVT prophylaxis. Pepcid for GI prophylaxis. DISPOSITION: Repeat blood cx pending, PT eval and d/c plan back to SNF if repeat bllod cx negative and final sensitivities available. Subjective 24 Hr Interval Summary Free Text/Dictation Patient doing better No complaints and sleeping comfortably this AM WBC trending down and renal function much better with good clear UOP Hematuria resolved Exam/Review of Systems Vital Signs Vitals Vital Signs Date Time Temp Pulse Resp B/P Pulse Ox O2 Delivery O2 Flow Rate FiO2 05/24/16 11:04 98.2 88 18 119/67 98 05/24/16 07:46 Nasal Cannula 2.0 05/23/16 04:00 33 Intake and Output 05/23/16 05/23/16 05/24/16 15:00 23:00 07:00 Intake Total 300 ml 1200 ml Output Total 575 ml 1300 ml Balance -275 ml -100 ml Exam Constitutional: alert, frail, oriented Respiratory: clear to auscultation, normal air movement Cardiovascular: nl pulses, regular rate and rhythm Gastrointestinal: non-tender, soft Genitourinary - Male: other (clear urine in Wilkerson bag ) Extremities: normal pulses, other (no edema, clubbing or cyanosis ) Neurological: [employer] II-XII intact, focal weakness (chronic left hemiparesis ), nl mental status Results Result Diagram: 05/24/1612 05/24/1617 Results 24 hrs Laboratory Tests Test 05/24/16 06:12 05/24/16 06:17 Activated Partial Thromboplast Time 31.8 Basophils # 0.0 Basophils % 0.0 Blood Morphology Comment Eosinophils # 0.0 Eosinophils % 0.1 Hematocrit 34.1 L Hemoglobin 11.8 L INR International Normalized Ratio 1.16 Lymphocytes # 0.6 L Lymphocytes % 4.6 L Mean Corpuscular Hemoglobin 32.3 Mean Corpuscular Hemoglobin Concent 34.5 Mean Corpuscular Volume 93.5 Mean Platelet Volume 8.5 Monocytes # 0.5 Monocytes % 3.9 Neutrophils # 11.0 H Neutrophils % 91.4 H Nucleated Red Blood Cells # 0.0 Nucleated Red Blood Cells % 0.0 Platelet Count 231 Prothrombin Time 14.9 H Prothrombin Time Ratio 1.2 Red Blood Count 3.64 L Red Cell Distribution Width 14.5 White Blood Count 12.0 #H Anion Gap 15 Blood Urea Nitrogen 40 H Calcium Level 8.6 Carbon Dioxide Level 18 L Chloride Level 115 H Creatinine 1.26 #H Glucose Level 80 Magnesium Level 2.1 Phosphorus Level 3.1 Potassium Level 4.1 Sodium Level 144 Medications Medications Current Medications Cefepime HCl 50 ml @ 100 mls/hr Q24H IVPB Last administered on 05/24/16 10:31 ; Admin Dose 100 MLS/HR; Start 05/23/16 at 09:00 Sodium Chloride (NS) 1,000 ml @ 100 mls/hr Q10H IV Last administered on 02:01; Admin Dose 100 MLS/HR; Start 05/22/16 at 22:21 Lorazepam (Ativan) 0.5 mg Q6H PRN IV ANXIETY; Start 05/22/16 at 22:30 Ondansetron HCl (Zofran Inj) 4 mg Q6H PRN IV NAUSEA AND/OR VOMITING; Start 02/26 at 22:30 Aspirin (Aspirin) 81 mg DAILY PO Last administered on 05/24/16 08:34; Admin Dose 81 MG; Start 05/23/16 at 09:00 Nitroglycerin (Nitroglycerin (Sl Tab) 0.4 Mg) 1 tab Q5M PRN SL CHEST PAIN; Start 05/22/16 at 22:30 Acetaminophen (Tylenol Tab) 650 mg Q6H PRN PO PAIN LEVEL 1-3 OR FEVER; Start at 22:30 Morphine Sulfate (morphine) 2 mg Q4H PRN IV PAIN LEVEL 7-10; Start 05/22/16 at 22:30 Docusate Sodium (Colace) 100 mg Q12H PRN PO CONSTIPATION; Start 05/22/16 at 22: 30 Magnesium Hydroxide (Milk Of Mag) 30 ml DAILY PRN PO CONSTIPATION; Start at 22:30 Bisacodyl (Dulcolax Supp) 10 mg DAILY PRN [place] CONSTIPATION; Start 05/22/16 at 22 :30 Famotidine (Pepcid) 20 mg DAILY PO Last administered on 05/24/16 08:34; Admin Dose 20 MG; Start 05/23/16 at 09:00 Atorvastatin Calcium (Lipitor) 40 mg QHS PO Last administered on 05/23/16 21: 09; Admin Dose 40 MG; Start 05/23/16 at 21:00 Influenza Virus Vaccine (Fluzone) 0.5 ml ONCE ONCE IM* ; Start 05/25/16 at 09:00 ; Stop 05/25/16 at 09:01 Procedures Procedures Echocardiogram Report Patient Name: SENG ESCAMILLA Gender: Male Date: 1940 Study Date: 23-May-2016 Visual Merchandising Director: Arnold Savage RDCS Location: ER Ref. Physician: JUDY DELGADO Quality: Technically Difficult Study Procedures: Transthoracic echocardiogram with complete 2D, M-Mode, and doppler examination. Indications: Evaluate Left Ventricular function. 2D/M Mode Doppler Measurement Value Normal Ranges Measurement Value Normal Ranges LVIDd 2D 5.3 3.5 - 5.6 cm AV Peak Esteban 1.1 m/sec LVIDs 2D 4.9 2.1 - 4.1 cm AV Peak PG 5.1 mmHg LVPWd 2D 1.1 0.6 - 1.1 cm LVOT Peak Esteban 0.9 m/sec IVSd 2D 0.9 0.6 - 1.1 cm LVOT Peak PG 3.0 mmHg AoR Diam 2D 2.9 2.0 - 3.7 cm MV E Peak Esteban 0.6 m/sec EDV 2D 135.2 cm3 MV A Peak Esteban 0.8 m/sec ESV 2D 114.9 cm3 MV E/A 0.7 LA Dimen 2D 3.7 2.3 - 4.0 cm MV Decel Time 198 msec MV Decel Converse 3 MV E/A 0.7 Findings Left Ventricle: Normal left ventricular cavity size. Normal left ventricular wall thickness. Moderate left ventricular systolic dysfunction. Ejection fraction is visually estimated at 35 %. Tissue Doppler/Mitral Doppler indices are consistent with impaired relaxation (Stage I diastolic dysfunction). Multiple segmental wall motion abnormalities. Right Ventricle: Normal right ventricular size. Not well visualized. Left Atrium: The left atrium is normal in size. Right Atrium: The right atrium is normal in size. Mitral Valve: Mitral valve leaflets appear mildly thickened. Trace mitral regurgitation. Aortic Valve: Aortic cusps appear mildly calcified. Trace aortic valve regurgitation. Tricuspid Valve: Normal appearance and function of the tricuspid valve with trace physiologic regurgitation. Pericardium: Normal pericardium with no significant pericardial effusion. Aorta: Normal aortic root. IVC: Normal size and normal respiratory collapse consistent with normal right atrial pressure. Conclusions 1. Normal left ventricular cavity size. Normal left ventricular wall thickness. Moderate left ventricular systolic dysfunction. Ejection fraction is visually estimated at 35 %. Tissue Doppler/Mitral Doppler indices are consistent with impaired relaxation (Stage I diastolic dysfunction). Multiple segmental wall motion abnormalities. 2. Normal right ventricular size. Not well visualized. 3. The left atrium is normal in size. 4. The right atrium is normal in size. 5. No significant valvular stenosis or regurgitation seen. 6. Normal pericardium with no significant pericardial effusion. Electronically Signed By: Serafin Georges 23-May-2016 15:00:14 -0800 GETACHEW DELGADO May 24, 2016 12:29
[2016-05-24] MEDS: ENOXAPARIN 40 MG/0.4 ML SYG SC SCH (13:19)
[2016-05-24] MEDS: METOPROLOL 25 MG TAB PO SCH (14:22)
--- NOTE | 2016-05-24 14:22 | CONS ---
Date/Time of Note Date/Time of Note DATE: 05/24/16 TIME: 14:20 Assessment/Plan Assessment/Plan Additional Assessment/Plan Severe sepsis with bacteremia Elevated troponin Cardiomyopathy with ejection fraction 35% CAD ERIC CVA -Blood pressure and renal function improving, would titrate down IV fluids as long as blood pressure remained stable. Continue aspirin and statin therapy. Consultation Date/Type/Reason Admit Date/Time May 22, 2016 at 18:18 Initial Consult Date Type of Consultation: cv 24 HR Interval Summary Free Text/Dictation Patient feeling better, son at bedside and notices improvement in mental status and patient asking for food Exam/Review of Systems Vital Signs Vitals Vital Signs Date Time Temp Pulse Resp B/P Pulse Ox O2 Delivery O2 Flow Rate FiO2 05/24/16 12:41 76 05/24/16 11:04 98.2 18 119/67 98 05/24/16 07:46 Nasal Cannula 2.0 05/23/16 04:00 33 Intake and Output 05/23/16 05/23/16 05/24/16 15:00 23:00 07:00 Intake Total 300 ml 1200 ml Output Total 575 ml 1300 ml Balance -275 ml -100 ml Exam Sleeping but arousable, follows commands, no apparent distress Head: normocephalic Neck: supple Respiratory: other (course breath sounds bilaterally, no wheezing) Cardiovascular: other (S1 and S2 heard), regular rate and rhythm Gastrointestinal: bowel sounds, non-tender, soft Extremities: other (no significant edema) Results Result Diagram: 05/24/16 0612 05/24/16 0617 Results 24 hrs Laboratory Tests Test 05/24/16 06:12 05/24/16 06:17 Activated Partial Thromboplast Time 31.8 Basophils # 0.0 Basophils % 0.0 Blood Morphology Comment Eosinophils # 0.0 Eosinophils % 0.1 Hematocrit 34.1 L Hemoglobin 11.8 L INR International Normalized Ratio 1.16 Lymphocytes # 0.6 L Lymphocytes % 4.6 L Mean Corpuscular Hemoglobin 32.3 Mean Corpuscular Hemoglobin Concent 34.5 Mean Corpuscular Volume 93.5 Mean Platelet Volume 8.5 Monocytes # 0.5 Monocytes % 3.9 Neutrophils # 11.0 H Neutrophils % 91.4 H Nucleated Red Blood Cells # 0.0 Nucleated Red Blood Cells % 0.0 Platelet Count 231 Prothrombin Time 14.9 H Prothrombin Time Ratio 1.2 Red Blood Count 3.64 L Red Cell Distribution Width 14.5 White Blood Count 12.0 #H Anion Gap 15 Blood Urea Nitrogen 40 H Calcium Level 8.6 Carbon Dioxide Level 18 L Chloride Level 115 H Creatinine 1.26 #H Glucose Level 80 Magnesium Level 2.1 Phosphorus Level 3.1 Potassium Level 4.1 Sodium Level 144 Medications Medications Current Medications Cefepime HCl 50 ml @ 100 mls/hr Q24H IVPB Last administered on 05/24/16 10:31 ; Admin Dose 100 MLS/HR; Start 05/23/16 at 09:00 Sodium Chloride (NS) 1,000 ml @ 75 mls/hr [id number] IV Last administered on 05/24 13:08; Admin Dose 75 MLS/HR; Start 05/22/16 at 22:21 Lorazepam (Ativan) 0.5 mg Q6H PRN IV ANXIETY; Start 05/22/16 at 22:30 Ondansetron HCl (Zofran Inj) 4 mg Q6H PRN IV NAUSEA AND/OR VOMITING; Start 02/26 at 22:30 Aspirin (Aspirin) 81 mg DAILY PO Last administered on 05/24/16 08:34; Admin Dose 81 MG; Start 05/23/16 at 09:00 Nitroglycerin (Nitroglycerin (Sl Tab) 0.4 Mg) 1 tab Q5M PRN SL CHEST PAIN; Start 05/22/16 at 22:30 Acetaminophen (Tylenol Tab) 650 mg Q6H PRN PO PAIN LEVEL 1-3 OR FEVER; Start at 22:30 Morphine Sulfate (morphine) 2 mg Q4H PRN IV PAIN LEVEL 7-10; Start 05/22/16 at 22:30 Docusate Sodium (Colace) 100 mg Q12H PRN PO CONSTIPATION; Start 05/22/16 at 22: 30 Magnesium Hydroxide (Milk Of Mag) 30 ml DAILY PRN PO CONSTIPATION; Start at 22:30 Bisacodyl (Dulcolax Supp) 10 mg DAILY PRN [place] CONSTIPATION; Start 05/22/16 at 22 :30 Famotidine (Pepcid) 20 mg DAILY PO Last administered on 05/24/16 08:34; Admin Dose 20 MG; Start 05/23/16 at 09:00 Atorvastatin Calcium (Lipitor) 40 mg QHS PO Last administered on 05/23/16 21: 09; Admin Dose 40 MG; Start 05/23/16 at 21:00 Influenza Virus Vaccine (Fluzone) 0.5 ml ONCE ONCE IM* ; Start 05/25/16 at 09:00 ; Stop 05/25/16 at 09:01 Enoxaparin Sodium (Lovenox) 40 mg DAILY SC Last administered on 05/24/16 13:19 ; Admin Dose 40 MG; Start 05/24/16 at 13:30 Metoprolol Tartrate (Lopressor) 25 mg BID PO ; Start 05/24/16 at 13:30 Serafin Georges DO May 24, 2016 14:22
[2016-05-24] MEDS: ATORVASTATIN 40 MG TAB PO SCH (21:30)
[2016-05-25] VITALS (12 sets, daily range): BP systolic 121–137; BP diastolic 64–71; PULSE 58–75; RESP 17–18
[2016-05-25] MEDS: METOPROLOL 25 MG TAB PO SCH ×3 (00:25→21:54)
[2016-05-25] MEDS: SOD CHLORIDE 0.9% 1,000 ML IV SCH (03:47)
[2016-05-25 06:56] LABS: EOSINOPHILS % 0.2 % (0.0-7.0); HEMATOCRIT 30.9 % (42.0-52.0); HEMOGLOBIN 10.6 g/dl (14.0-18.0); LYMPHOCYTES # 0.6 10^3/ul (0.8-2.9); LYMPHOCYTES % 7.5 % (15.0-51.0); MEAN CORPUSCULAR HEMOGLOBIN 32.3 pg (29.0-33.0); MEAN CORPUSCULAR HGB CONC 34.4 g/dl (32.0-37.0); MEAN CORPUSCULAR VOLUME 93.8 fl (82.0-101.0); MEAN PLATELET VOLUME 8.9 fl (7.4-10.4); MONOCYTE # 0.5 10^3/ul (0.3-0.9); MONOCYTES % 6.6 % (0.0-11.0); NEUTROPHIL # 7.1 10^3/ul (1.6-7.5); NEUTROPHILS % 85.7 % (39.0-77.0); PLATELET COUNT 236 10^3/UL (140-440); RED BLOOD COUNT 3.29 10^6/ul (4.70-6.10); RED CELL DISTRIBUTION WIDTH 14.9 % (11.5-14.5); UNCORRECTED WBC 8.3 10^3/ul (4.8-10.8); WHITE BLOOD COUNT 8.3 10^3/ul (4.8-10.8)
[2016-05-25 06:58] LABS: POTASSIUM 3.9 mmol/L (3.5-5.1)
[2016-05-25 07:01] LABS: CREATININE 1.08 mg/dl (0.61-1.24)
[2016-05-25 07:02] LABS: CALCIUM 8.6 mg/dl (8.4-10.2)
[2016-05-25 07:06] LABS: PHOSPHORUS 2.3 mg/dl (2.5-4.9)
[2016-05-25 07:22] LABS: MAGNESIUM 2.1 mg/dl (1.7-2.5)
[2016-05-25 07:24] LABS: CONDITION 1; LH ANALYZER COMMENTS 1
[2016-05-25] MEDS: CEFEPIME 2GM/50 ML (PMX) 50 ML IVPB SCH (08:24)
[2016-05-25] MEDS: FAMOTIDINE 20 MG TAB PO SCH (08:24)
[2016-05-25] MEDS: ASPIRIN 81 MG TAB PO SCH (08:24)
[2016-05-25] MEDS: ENOXAPARIN 40 MG/0.4 ML SYG SC SCH (08:26)
--- NOTE | 2016-05-25 08:54 | PQ ---
Date/Time of Note Date/Time of Note DATE: 05/25/16 TIME: 08:46 Physician Query Documentation Clarification Dear Dr. Delgado, A review of the medical record found a need for documentation clarification. progress note - 1. Congestive heart failure with systolic dysfunction., EF 35% BNP 35,000 Echo - Conclusions 1. Normal left ventricular cavity size. Normal left ventricular wall thickness. Moderate left ventricular systolic dysfunction. Ejection fraction is visually estimated at 35 %. Tissue Doppler/Mitral Doppler indices are consistent with impaired relaxation (Stage I diastolic dysfunction) Please clarify the acuity of CHF. To facilitate accurate and complete coding, please agustin ( x ) the suspected diagnosis that apply: ( ) Acute Systolic (Reduced EF) Heart Failure ( ICD10 I50.21 ) ( ) Acute Diastolic (Preserved EF) Heart Failure ( ICD10 I50.31 ) ( ) Acute Combined Systolic & Diastolic Heart Failure ( ICD10 I50.41 ) ( ) Chronic Systolic (Reduced EF) Heart Failure ( ICD10 I50.22 ) ( ) Chronic Diastolic (Preserved EF) Heart Failure ( ICD10 I50.32 ) ( ) Chronic Combined Systolic & Diastolic Heart Failure ( ICD10 I50.42 ) ( X) Acute on Chronic Systolic (Reduced EF) Heart Failure ( ICD10 I50.23 ) ( ) Acute on Chronic Diastolic (Preserved EF) Heart Failure ( ICD10 I50.33 ) ( ) Acute on Chronic Combined Systolic & Diastolic Heart Failure ( ICD10 I50.43 ) Please provide your response by clicking edit document, making your choice ( x ), click ok and finally click sign. You may also document your response on your progress notes. We do appreciate your response. Thank you for your time. Robby Hopkins RN, BSN, CCS, CCDS [employer] [facility] [employer] [facility], [facility] and Coding Services [phone] Room # 1525 - Coding [address]~ [id number] ROBBY HOPKINS May 25, 2016 08:54 GETACHEW DELGADO May 28, 2016 10:10
[2016-05-25] MEDS ORDERED: INFLUENZA VIRUS VACCINE 0.5 ML (DISPENSING) IM* ONE (09:00)
--- NOTE | 2016-05-25 11:27 | PN ---
Date/Time of Note Date/Time of Note DATE: 05/25/16 TIME: 11:09 Assessment/Plan VTE Prophylaxis VTE Prophylaxis Intervention: LMWH Lines/Catheters IV Catheter Type (from Nrs): Central Line Central line still needed: Yes (subclavian ) Urinary Cath still in place: Yes Reason Cath still needed: other (indicate) (Urinary retention, ERIC ) Assessment/Plan Assessment/Plan 75-year-old male with: 1. Sepsis, status post episode of septic shock, resolved now secondary to urinary tract infection and cystitis. New Wilkerson catheter in place and hematuria resolved Changing abx to Levaquin based on cx results ans will also put on Bactroban for MRSA nares Hemodynamically stable 2. E coli and Proteus Mirabilis UTI, cystitis with acute kidney injury. Change abx to Levaquin based on sensitivities Repeat bld cx pending D/c subclavian central line 3. Acute kidney injury on reported chronic kidney disease; resolved and renal function actually normal now Hematuria resolved 4. Elevated troponin with known coronary artery disease, status post stent placement and known ischemic cardiomyopathy. EF 35 % His troponin is trending down. Stable and euvolemic, back on ASA 5. Hypertension: will resume BP meds ore stable. 6. Hyperlipidemia. Continue statin therapy. 7. Peripheral vascular disease and CAD. Continue current treatment. On ASA. 8. Status post left hip hemiarthroplasty. PT eval and treat, Lovenox resumed for DVT ppx. 9. 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 Physical therapy. 10. Leukocytosis in setting of cystitis and bacteremia: resolved. 11. Congestive heart failure with systolic dysfunction., EF 35%, euvolemic and stable, d/c IVF Follow up additional cardiology recommendations. 12. Gastroesophageal reflux disease. Continue Pepcid. Prophylaxis. Back on Lovenox for DVT prophylaxis. Pepcid for GI prophylaxis. DISPOSITION: Repeat blood cx pending, PT, d/c plan back to SNF if repeat bllod cx negative by tomorrow. Son at bedside updated Subjective 24 Hr Interval Summary Free Text/Dictation Patient doing much better, on RA and renal function back to normal PT and d/c plan back to SNF planned for tomorrow Exam/Review of Systems Vital Signs Vitals Vital Signs Date Time Temp Pulse Resp B/P Pulse Ox O2 Delivery O2 Flow Rate FiO2 05/25/16 11:07 98.3 81 18 125/64 95 05/24/16 20:30 Nasal Cannula 2.0 05/23/16 04:00 33 Intake and Output 05/24/16 05/24/16 05/25/16 15:00 23:00 07:00 Intake Total 650 ml 935 ml 1015 ml Output Total 1200 ml 1250 ml Balance 650 ml -265 ml -235 ml Exam Constitutional: alert, frail, oriented, other (stable) Respiratory: clear to auscultation, normal air movement Cardiovascular: nl pulses, regular rate and rhythm Gastrointestinal: non-tender, soft Musculoskeletal: nl extremities to inspection Extremities: normal pulses, other (no edema, clubbing or cyanosis ) Neurological: HOMICIDE INVESTIGATOR II-XII intact, focal weakness (left hemiparesis ), nl mental status, nl speech Results Result Diagram: 05/25/16 0535 05/25/16 0535 Results 24 hrs Laboratory Tests Test 05/25/16 05:35 Anion Gap 13 Basophils # 0.0 Basophils % 0.0 Blood Morphology Comment Blood Urea Nitrogen 32 H Calcium Level 8.6 Carbon Dioxide Level 20 L Chloride Level 113 H Creatinine 1.08 Eosinophils # 0.0 Eosinophils % 0.2 Glucose Level 89 Hematocrit 30.9 L Hemoglobin 10.6 L Lymphocytes # 0.6 L Lymphocytes % 7.5 L Magnesium Level 2.1 Mean Corpuscular Hemoglobin 32.3 Mean Corpuscular Hemoglobin Concent 34.4 Mean Corpuscular Volume 93.8 Mean Platelet Volume 8.9 Monocytes # 0.5 Monocytes % 6.6 Neutrophils # 7.1 Neutrophils % 85.7 H Nucleated Red Blood Cells # 0.0 Nucleated Red Blood Cells % 0.0 Phosphorus Level 2.3 L Platelet Count 236 Potassium Level 3.9 Red Blood Count 3.29 L Red Cell Distribution Width 14.9 H Sodium Level 142 White Blood Count 8.3 # Medications Medications Current Medications Sodium Chloride (NS) 1,000 ml @ 75 mls/hr [id number] IV Last administered on 05/25t 03:47; Admin Dose 75 MLS/HR; Start 05/22/16 at 22:21 Lorazepam (Ativan) 0.5 mg Q6H PRN IV ANXIETY; Start 05/22/16 at 22:30 Ondansetron HCl (Zofran Inj) 4 mg Q6H PRN IV NAUSEA AND/OR VOMITING; Start 02/26 at 22:30 Aspirin (Aspirin) 81 mg DAILY PO Last administered on 05/25/16 08:24; Admin Dose 81 MG; Start 05/23/16 at 09:00 Nitroglycerin (Nitroglycerin (Sl Tab) 0.4 Mg) 1 tab Q5M PRN SL CHEST PAIN; Start 05/22/16 at 22:30 Acetaminophen (Tylenol Tab) 650 mg Q6H PRN PO PAIN LEVEL 1-3 OR FEVER; Start at 22:30 Morphine Sulfate (morphine) 2 mg Q4H PRN IV PAIN LEVEL 7-10; Start 05/22/16 at 22:30 Docusate Sodium (Colace) 100 mg Q12H PRN PO CONSTIPATION; Start 05/22/16 at 22: 30 Magnesium Hydroxide (Milk Of Mag) 30 ml DAILY PRN PO CONSTIPATION; Start at 22:30 Bisacodyl (Dulcolax Supp) 10 mg DAILY PRN [place] CONSTIPATION; Start 05/22/16 at 22 :30 Famotidine (Pepcid) 20 mg DAILY PO Last administered on 05/25/16 08:24; Admin Dose 20 MG; Start 05/23/16 at 09:00 Atorvastatin Calcium (Lipitor) 40 mg QHS PO Last administered on 05/24/16 21: 30; Admin Dose 40 MG; Start 05/23/16 at 21:00 Enoxaparin Sodium (Lovenox) 40 mg DAILY SC Last administered on 05/25/16 08:26 ; Admin Dose 40 MG; Start 05/24/16 at 13:30 Metoprolol Tartrate 25 mg 25 mg BID PO Last administered on 05/25/16 08:24; Admin Dose 25 MG; Start 05/24/16 at 13:30 Levofloxacin/ Dextrose (Levaquin 750 Mg/ D5W 150 ml (Pmx)) 150 ml @ 100 mls/hr Q24H IVPB ; Start 05/25/16 at 11:00 GETACHEW DELGADO May 25, 2016 11:21
[2016-05-25] MEDS: LEVOFLOXACIN 750MG/D5W (PMX) 150 ML IVPB SCH (12:30)
[2016-05-25] MEDS: MUPIROCIN 2% 22 GM OINT TOP SCH ×2 (12:30→21:54)
--- NOTE | 2016-05-25 12:31 | CONS ---
Date/Time of Note Date/Time of Note DATE: 05/25/16 TIME: 12:28 Assessment/Plan Assessment/Plan Additional Assessment/Plan Severe sepsis with bacteremia Hypotension, resolved Elevated troponin Cardiomyopathy with ejection fraction 35% CAD ERIC, improving CVA -Patient to stop IV fluids today with blood pressure remaining stable and patient taking by mouth intake. Evidence of mild volume overload. Given history of cardiomyopathy with ejection fraction 35%, will start gentle diuresis as renal function and blood pressure permits. Consultation Date/Type/Reason Admit Date/Time May 22, 2016 at 18:18 Type of Consultation: cv 24 HR Interval Summary Free Text/Dictation Feeling better, denies shortness of breath or chest pain Exam/Review of Systems Vital Signs Vitals Vital Signs Date Time Temp Pulse Resp B/P Pulse Ox O2 Delivery O2 Flow Rate FiO2 05/25/16 12:15 58 05/25/16 11:07 98.3 18 125/64 95 05/25/16 08:00 Nasal Cannula 2.0 05/23/16 04:00 33 Intake and Output 05/24/16 05/24/16 05/25/16 15:00 23:00 07:00 Intake Total 650 ml 935 ml 1015 ml Output Total 1200 ml 1250 ml Balance 650 ml -265 ml -235 ml Exam Sleeping but arousable, follows commands, no apparent distress Head: normocephalic Neck: supple Respiratory: other (course breath sounds bilaterally, no wheezing) Cardiovascular: other (S1 and S2 heard), regular rate and rhythm Gastrointestinal: bowel sounds, non-tender, soft Extremities: edema Results Result Diagram: 05/25/16 0535 05/25/16 0535 Results 24 hrs Laboratory Tests Test 05/25/16 05:35 Anion Gap 13 Basophils # 0.0 Basophils % 0.0 Blood Morphology Comment Blood Urea Nitrogen 32 H Calcium Level 8.6 Carbon Dioxide Level 20 L Chloride Level 113 H Creatinine 1.08 Eosinophils # 0.0 Eosinophils % 0.2 Glucose Level 89 Hematocrit 30.9 L Hemoglobin 10.6 L Lymphocytes # 0.6 L Lymphocytes % 7.5 L Magnesium Level 2.1 Mean Corpuscular Hemoglobin 32.3 Mean Corpuscular Hemoglobin Concent 34.4 Mean Corpuscular Volume 93.8 Mean Platelet Volume 8.9 Monocytes # 0.5 Monocytes % 6.6 Neutrophils # 7.1 Neutrophils % 85.7 H Nucleated Red Blood Cells # 0.0 Nucleated Red Blood Cells % 0.0 Phosphorus Level 2.3 L Platelet Count 236 Potassium Level 3.9 Red Blood Count 3.29 L Red Cell Distribution Width 14.9 H Sodium Level 142 White Blood Count 8.3 # Medications Medications Current Medications Lorazepam (Ativan) 0.5 mg Q6H PRN IV ANXIETY; Start 05/22/16 at 22:30 Ondansetron HCl (Zofran Inj) 4 mg Q6H PRN IV NAUSEA AND/OR VOMITING; Start 02/26 at 22:30 Aspirin (Aspirin) 81 mg DAILY PO Last administered on 05/25/16 08:24; Admin Dose 81 MG; Start 05/23/16 at 09:00 Nitroglycerin (Nitroglycerin (Sl Tab) 0.4 Mg) 1 tab Q5M PRN SL CHEST PAIN; Start 05/22/16 at 22:30 Acetaminophen (Tylenol Tab) 650 mg Q6H PRN PO PAIN LEVEL 1-3 OR FEVER; Start at 22:30 Morphine Sulfate (morphine) 2 mg Q4H PRN IV PAIN LEVEL 7-10; Start 05/22/16 at 22:30 Docusate Sodium (Colace) 100 mg Q12H PRN PO CONSTIPATION; Start 05/22/16 at 22: 30 Magnesium Hydroxide (Milk Of Mag) 30 ml DAILY PRN PO CONSTIPATION; Start at 22:30 Bisacodyl (Dulcolax Supp) 10 mg DAILY PRN [place] CONSTIPATION; Start 05/22/16 at 22 :30 Famotidine (Pepcid) 20 mg DAILY PO Last administered on 05/25/16 08:24; Admin Dose 20 MG; Start 05/23/16 at 09:00 Atorvastatin Calcium (Lipitor) 40 mg QHS PO Last administered on 05/24/16 21: 30; Admin Dose 40 MG; Start 05/23/16 at 21:00 Enoxaparin Sodium (Lovenox) 40 mg DAILY SC Last administered on 05/25/16 08:26 ; Admin Dose 40 MG; Start 05/24/16 at 13:30 Metoprolol Tartrate 25 mg 25 mg BID PO Last administered on 05/25/16 08:24; Admin Dose 25 MG; Start 05/24/16 at 13:30 Levofloxacin/ Dextrose (Levaquin 750 Mg/ D5W 150 ml (Pmx)) 150 ml @ 100 mls/hr Q24H IVPB ; Start 05/25/16 at 11:00 Mupirocin (Bactroban) 1 applic BID TOP ; Start 05/25/16 at 12:00; Stop 06/07/16 at 21:01 Serafin Georges DO May 25, 2016 12:31
[2016-05-25] MEDS: FUROSEMIDE 40 MG TAB PO SCH (13:09)
[2016-05-25] MEDS: ATORVASTATIN 40 MG TAB PO SCH (21:53)
[2016-05-26] VITALS (12 sets, daily range): BP systolic 115–136; BP diastolic 63–75; PULSE 69–81; RESP 18–20
[2016-05-26 07:10] LABS: POTASSIUM 3.9 mmol/L (3.5-5.1)
[2016-05-26 07:11] LABS: BASOPHILS % 0.1 % (0.0-2.0); EOSINOPHILS # 0.1 10^3/ul (0.0-0.5); EOSINOPHILS % 0.9 % (0.0-7.0); HEMATOCRIT 32.5 % (42.0-52.0); HEMOGLOBIN 11.4 g/dl (14.0-18.0); LYMPHOCYTES # 0.8 10^3/ul (0.8-2.9); LYMPHOCYTES % 10.7 % (15.0-51.0); MEAN CORPUSCULAR HEMOGLOBIN 32.4 pg (29.0-33.0); MEAN CORPUSCULAR VOLUME 92.5 fl (82.0-101.0); MEAN PLATELET VOLUME 8.5 fl (7.4-10.4); MONOCYTE # 0.8 10^3/ul (0.3-0.9); NEUTROPHIL # 5.8 10^3/ul (1.6-7.5); NEUTROPHILS % 77.3 % (39.0-77.0); PHOSPHORUS 2.6 mg/dl (2.5-4.9); PLATELET COUNT 267 10^3/UL (140-440); RED BLOOD COUNT 3.52 10^6/ul (4.70-6.10); RED CELL DISTRIBUTION WIDTH 14.1 % (11.5-14.5); UNCORRECTED WBC 7.6 10^3/ul (4.8-10.8); WHITE BLOOD COUNT 7.6 10^3/ul (4.8-10.8)
[2016-05-26 07:13] LABS: CREATININE 0.95 mg/dl (0.61-1.24)
[2016-05-26 07:14] LABS: CALCIUM 8.8 mg/dl (8.4-10.2)
[2016-05-26 07:39] LABS: CONDITION 1
[2016-05-26] MEDS: ASPIRIN 81 MG TAB PO SCH (09:38)
[2016-05-26] MEDS: METOPROLOL 25 MG TAB PO SCH ×2 (09:38→22:04)
[2016-05-26] MEDS: MUPIROCIN 2% 22 GM OINT TOP SCH ×2 (09:39→22:04)
[2016-05-26] MEDS: FUROSEMIDE 40 MG TAB PO SCH (09:39)
[2016-05-26] MEDS: FAMOTIDINE 20 MG TAB PO SCH (09:39)
[2016-05-26] MEDS: ENOXAPARIN 40 MG/0.4 ML SYG SC SCH (10:26)
--- NOTE | 2016-05-26 11:16 | DS ---
Date/Time of Note Date/Time of Note DATE: 05/26/16 TIME: 11:15 Discharge Summary Admission/Discharge Info Admit Date/Time May 22, 2016 at 18:18 Discharge Date/Time May 26, 2016 Patient Condition: Good Consults Serafin Georges DO (Cardiology) Procedures Echo Renal ultrasound Hx of Present Illness 75-year-old man who suffered left hip fracture and left clavicle fracture in a fall, status post ORIF, transferred from [facility] with hypotension. He had urinary retention and urinary output requiring indwelling Wilkerson catheter. Labs a week earlier showed negative UA, white blood cell count around 12,000, and a creatinine of 0.8. He had been on Lovenox for DVT prophylaxis post-ORIF ALLERGIES: NO KNOWN ALLERGIES. PAST MEDICAL HISTORY: 1. Status post left hip open reduction internal fixation approximately 10 days ago. 2. Hypertension. 3. Coronary artery disease. 4. Ischemic cardiomyopathy. 5. 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 6. 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 7. Left clavicle fracture. 8. Chronic kidney disease per records, stage III. 9. Gastroesophageal reflux disease. 10. Anxiety disorder. 11. Dysarthria. 12. Hyperlipidemia. 13. Peripheral vascular disease. 14. Congestive heart failure, systolic dysfunction, ejection fraction 25%, chronic. SOCIAL HISTORY: Patient is a nonsmoker. Per record he has a history of alcohol abuse prior to his stroke. Hospital Course In the emergency department he was hypotensive in the 60s. He had a central line placed, started on IV fluids. WBC 34.5/ul initially, dropping to 17.2k/ul , with gross hematuria in the Wilkerson from the SNF. He was started on broad spectrum antibiotics along with IV fluids. Other lab values included hemoglobin of 12.5, hematocrit of 36.4, platelet count 233. 25% bands on admission. Chemistry with a sodium of 145, potassium 4.7, chloride 115, bicarbonate 25, BUN 50, creatinine of 2.6 down from 3.4. Lactate has normalized to 1.9, was 5.7 on presentation, glucose of 83, calcium 8.2, phosphorus 4.1, magnesium 2.2. Liver function testing with total bilirubin of 0.4, AST 57, ALT 76, alkaline phosphatase of 73. BNP is 35,000. Total protein 5.3, albumin 2.2. Troponin trended down from 0.76 to 0.26 currently. INR 1.11, PT 14.3, PTT 31.7. Urinalysis was grossly positive cloudy, positive nitrites, positive leukocyte esterase and many bacteria. EKG on admission showed sinus tachycardia. Portable chest x-ray showed mild atelectasis at the lung bases. No pneumothorax or infiltrates. Renal ultrasound showed bilateral cortical thinning, no hydronephrosis. His Wilkerson catheter was changed. Continued on cefepime and vancomycin. Cardiology consult obtained with Dr. Serafin Georges, with echo showing normal left ventricular cavity size and wall thickness. There was moderate left ventricular systolic dysfunction, with ejection fraction estimated at 35 %. Stage I diastolic dysfunction. Multiple segmental wall motion abnormalities, but no valvular abnormalities. Physical therapy initiated. He was sleepy this morning, son at his side. Indicated pain only in the left ( paretic) hand with any movement. No headache, chest pain or dyspnea. HEENT: Pupils were normal. Extraocular muscles are intact. Anicteric sclerae. NECK: No JVD, no thyromegaly noted. HEART: Regular rhythm, normal rate. No murmur, good peripheral perfusion. LUNGS: Clear to auscultation bilaterally. ABDOMEN: Soft, nondistended, non-tender. Clear urine in Wilkerson. EXTREMITIES: No edema, clubbing or cyanosis. Patient is neurovascularly intact. NEUROLOGIC: Left hemiparesis, but moves his right arm arm normally. Legs restrained post-operatively. Home Meds Reported Medications Benazepril Hcl* (Benazepril Hcl*) 10 Mg Tablet, 10 MG PO DAILY, #30 TAB HOLD IF SBP<110, HR<60 05/22/16 Enoxaparin Sodium* (Lovenox*) 40 Mg/0.4 Ml Syringe, 40 MG SC Q24H, SYR 05/22/16 Metoprolol Succinate* (Toprol XL*) 25 Mg Tab.sr.24h, 25 MG PO BID, #30 TAB HOLD IF SBP<110,HR<60 05/22/16 Atorvastatin* (Atorvastatin*) 40 Mg Tablet, 40 MG PO QHS, #30 TAB 05/22/16 Famotidine* (Famotidine*) 20 Mg Tablet, 20 MG PO BID, #60 TAB 05/22/16 Acetaminophen* (Tylenol*) 500 Mg Tab, 1000 MG PO Q4H Y for PAIN 4-6/10, TAB 05/22/16 Oxycodone HCl/Acetaminophen (Percocet 5-325 mg Tablet) 1 Each Tablet, 1 EACH PO Q3H Y for PAIN 7-01/20, TAB 05/22/16 Acetaminophen* (Tylenol*) 325 Mg Tablet, 650 MG PO Q4H Y for MILD PAIN LEVEL 1-3 , TAB FOR FEVER 100 AND ABOVE 05/22/16 Lorazepam* (Lorazepam*) 0.5 Mg Tablet, 0.5 MG PO Q6 Y for ANXIETY, TAB 05/22/16 Ondansetron Hcl* (Zofran*) 4 Mg Tab, 4 MG PO Q4H Y for NAUSEA AND OR VOMITING, TAB 05/22/16 Discontinued Reported Medications Benazepril Hcl* (Lotensin*) 20 Mg Tablet, 20 MG PO DAILY, #30 TAB 05/22/16 Benazepril/Hydrochlorothiazide (Lotensin Hct 10-12.5 mg Tablet) 1 Each Tablet, 1 TAB PO DAILY, #30 TAB HOLD IF SBP<110,HR<60 05/22/16 Pending Labs Laboratory Tests Test 05/26/16 05:45 Anion Gap 13 (8-16) Basophils # 0.010^3/ul (0.0-0.1) Basophils % 0.1% (0.0-2.0) Blood Urea Nitrogen 27mg/dl (7-20) Calcium Level 8.8mg/dl (8.4-10.2) Carbon Dioxide Level 23mmol/L (21-31) Chloride Level 106mmol/L (97-110) Creatinine 0.95mg/dl (0.61-1.24) Eosinophils # 0.110^3/ul (0.0-0.5) Eosinophils % 0.9% (0.0-7.0) Glucose Level 89mg/dl (70-220) Hematocrit 32.5% (42.0-52.0) Hemoglobin 11.4g/dl (14.0-18.0) Lymphocytes # 0.810^3/ul (0.8-2.9) Lymphocytes % 10.7% (15.0-51.0) Magnesium Level 2.0mg/dl (1.7-2.5) Mean Corpuscular Hemoglobin 32.4pg (29.0-33.0) Mean Corpuscular Hemoglobin Concent 35.0g/dl (32.0-37.0) Mean Corpuscular Volume 92.5fl (82.0-101.0) Mean Platelet Volume 8.5fl (7.4-10.4) Monocytes # 0.810^3/ul (0.3-0.9) Monocytes % 11.0% (0.0-11.0) Neutrophils # 5.810^3/ul (1.6-7.5) Neutrophils % 77.3% (39.0-77.0) Nucleated Red Blood Cells # 0.010^3/ul (0.0-0.0) Nucleated Red Blood Cells % 0.0/100WBC (0.0-0.0) Phosphorus Level 2.6mg/dl (2.5-4.9) Platelet Count 30865^3/UL (140-440) Potassium Level 3.9mmol/L (3.5-5.1) Red Blood Count 3.5210^6/ul (4.70-6.10) Red Cell Distribution Width 14.1% (11.5-14.5) Sodium Level 138mmol/L (135-144) White Blood Count 7.610^3/ul (4.8-10.8) Copies To: CC: Serafin Georges DO; GETACHEW DELGADO JOHN P. M.D. May 26, 2016 11:15
--- NOTE | 2016-05-26 11:51 | PDOCDIS ---
Discharge Instructions CONDITION Patient Condition: Good HOME CARE INSTRUCTIONS: Special Diet: Cardiac SENG ALEXIS M.D. May 26, 2016 11:50
[2016-05-26] MEDS: LEVOFLOXACIN 750MG/D5W (PMX) 150 ML IVPB SCH (12:05)
--- NOTE | 2016-05-26 16:11 | CONS ---
Date/Time of Note Date/Time of Note DATE: 05/26/16 TIME: 16:09 Assessment/Plan Assessment/Plan Chief Complaint/Hosp Course Severe sepsis with bacteremia Hypotension, resolved Elevated troponin Cardiomyopathy with ejection fraction 35% CAD ERIC, improving CVA Problems: Additional Assessment/Plan continue current cardiac meds fluid status improved Consultation Date/Type/Reason Admit Date/Time May 22, 2016 at 18:18 Initial Consult Date Type of Consultation: cv 24 HR Interval Summary Free Text/Dictation fatigued, no distress, no chest pain or sob Detailed Summary Respiratory: no complaints Cardiovascular: no complaints Musculoskeletal: no complaints Exam/Review of Systems Vital Signs Vitals Vital Signs Date Time Temp Pulse Resp B/P Pulse Ox O2 Delivery O2 Flow Rate FiO2 05/26/16 12:31 Nasal Cannula 3.0 05/26/16 12:16 74 05/26/16 11:56 98.0 18 115/75 98 05/23/16 04:00 33 Intake and Output 05/25/16 05/25/16 05/26/16 15:00 23:00 07:00 Intake Total 540 ml Output Total 1250 ml Balance -710 ml Exam Constitutional: frail Head: atraumatic, normocephalic Neck: supple Respiratory: clear to auscultation Cardiovascular: regular rate and rhythm Gastrointestinal: soft Musculoskeletal: nl extremities to inspection Results Result Diagram: 05/26/16 0545 05/26/16 0545 Results 24 hrs Laboratory Tests Test 05/26/16 05:45 Anion Gap 13 Basophils # 0.0 Basophils % 0.1 Blood Urea Nitrogen 27 H Calcium Level 8.8 Carbon Dioxide Level 23 Chloride Level 106 Creatinine 0.95 Eosinophils # 0.1 Eosinophils % 0.9 Glucose Level 89 Hematocrit 32.5 L Hemoglobin 11.4 L Lymphocytes # 0.8 Lymphocytes % 10.7 L Magnesium Level 2.0 Mean Corpuscular Hemoglobin 32.4 Mean Corpuscular Hemoglobin Concent 35.0 Mean Corpuscular Volume 92.5 Mean Platelet Volume 8.5 Monocytes # 0.8 Monocytes % 11.0 Neutrophils # 5.8 Neutrophils % 77.3 H Nucleated Red Blood Cells # 0.0 Nucleated Red Blood Cells % 0.0 Phosphorus Level 2.6 Platelet Count 267 Potassium Level 3.9 Red Blood Count 3.52 L Red Cell Distribution Width 14.1 Sodium Level 138 White Blood Count 7.6 Medications Medications Current Medications Lorazepam (Ativan) 0.5 mg Q6H PRN IV ANXIETY; Start 05/22/16 at 22:30 Ondansetron HCl (Zofran Inj) 4 mg Q6H PRN IV NAUSEA AND/OR VOMITING; Start 02/26 at 22:30 Aspirin (Aspirin) 81 mg DAILY PO Last administered on 05/26/16 09:38; Admin Dose 81 MG; Start 05/23/16 at 09:00 Nitroglycerin (Nitroglycerin (Sl Tab) 0.4 Mg) 1 tab Q5M PRN SL CHEST PAIN; Start 05/22/16 at 22:30 Acetaminophen (Tylenol Tab) 650 mg Q6H PRN PO PAIN LEVEL 1-3 OR FEVER; Start at 22:30 Morphine Sulfate (morphine) 2 mg Q4H PRN IV PAIN LEVEL 7-10; Start 05/22/16 at 22:30 Docusate Sodium (Colace) 100 mg Q12H PRN PO CONSTIPATION; Start 05/22/16 at 22: 30 Magnesium Hydroxide (Milk Of Mag) 30 ml DAILY PRN PO CONSTIPATION; Start at 22:30 Bisacodyl (Dulcolax Supp) 10 mg DAILY PRN [place] CONSTIPATION; Start 05/22/16 at 22 :30 Famotidine (Pepcid) 20 mg DAILY PO Last administered on 05/26/16 09:39; Admin Dose 20 MG; Start 05/23/16 at 09:00 Atorvastatin Calcium (Lipitor) 40 mg QHS PO Last administered on 05/25/16 21: 53; Admin Dose 40 MG; Start 05/23/16 at 21:00 Enoxaparin Sodium (Lovenox) 40 mg DAILY SC Last administered on 05/26/16 10:26 ; Admin Dose 40 MG; Start 05/24/16 at 13:30 Metoprolol Tartrate 25 mg 25 mg BID PO Last administered on 05/26/16 09:38; Admin Dose 25 MG; Start 05/24/16 at 13:30 Levofloxacin/ Dextrose (Levaquin 750 Mg/ D5W 150 ml (Pmx)) 150 ml @ 100 mls/hr Q24H IVPB Last administered on 05/26/16 12:05; Admin Dose 100 MLS/HR; Start at 11:00 Mupirocin (Bactroban) 1 applic BID TOP Last administered on 05/26/16 09:39; Admin Dose 1 APPLIC; Start 05/25/16 at 12:00; Stop 06/07/16 at 21:01 Furosemide (Lasix) 40 mg DAILY PO Last administered on 05/26/16 09:39; Admin Dose 40 MG; Start 05/25/16 at 13:00 PINA HURTADO MD May 26, 2016 16:11
[2016-05-26] MEDS ORDERED: LEVO750P IV (20:16)
[2016-05-26] MEDS: ATORVASTATIN 40 MG TAB PO SCH (22:03)
[2016-05-27 00:38] VITALS: BP 122/64; RESP 19
== END 2016-05-27 00:30 | DRG 871 ==
LOC: E/R 16:40 → TEL 18:18
PROVIDERS: ADMIT Internal Medicine; ATTEND Internal Medicine
DX: A41.9 Sepsis, unspecified organism (principal); I50.23 Acute on chronic systolic (congestive) heart failure; R65.21 Severe sepsis with septic shock; N17.9 Acute kidney failure, unspecified; I69.354 Hemiplegia and hemiparesis following cerebral infarction affecting left non-dominant side; I13.0 Hypertensive heart and chronic kidney disease with heart failure and stage 1 through stage 4 chronic kidney disease, or unspecified chronic kidney disease; E86.0 Dehydration; I25.5 Ischemic cardiomyopathy; I69.322 Dysarthria following cerebral infarction; N18.3 Chronic kidney disease, stage 3 (moderate); N30.00 Acute cystitis without hematuria; I25.10 Atherosclerotic heart disease of native coronary artery without angina pectoris; E78.5 Hyperlipidemia, unspecified; B96.20 Unspecified Escherichia coli [E. coli] as the cause of diseases classified elsewhere; B96.4 Proteus (mirabilis) (morganii) as the cause of diseases classified elsewhere; K21.9 Gastro-esophageal reflux disease without esophagitis; Z96.642 Presence of left artificial hip joint; Z79.82 Long term (current) use of aspirin; Z79.02 Long term (current) use of antithrombotics/antiplatelets; I25.2 Old myocardial infarction; Z95.5 Presence of coronary angioplasty implant and graft
CPT/HCPCS: 36415; 71010; 76775; 80048; 80053; 81001; 81003; 82550; 82553; 83605; 83690; 83735; 83880; 84100; 84484; 85025; 85610; 85730; 86850; 86900; 86901; 87040; 87081; 87086; 90686; 93005; 93306; 96361; 96365; 96366; 96367; 96372; 96375; 96376; 97163; C1751; J0692; J1650; J1956; J3370; J7030

== ENCOUNTER 2018-12-12 15:14 | Inpatient (IN) | payer OTHER ==
[~2018-12-12] VITALS: Ht 170.2 cm; Wt 77.0 kg
[~2018-12-12 15:14] MED LIST: ACET-141 PO; ACET325T33 PO; ASPI-817 PO; ATOR40TA68 PO; BENA10TA4 PO; CHOL100062 PO; CRAN425C6 PO; DICL100G37 TOP; DOCU-144 PO; ENOX40DI14 SC; Epoetin Alfa-Epbx (Non-Esrd) SC; FAMO20TA18 PO; FER325 PO; FOLI0.4T2 PO; HYDR-3671 PO; IPRA3AMP29 INHALATION; KEN25O TOP; LACT1CAP47 PO; LEVO750P IV; LORA0.5T PO; LOSA25TA12 PO; LOSA25TA2 PO; MELA5TAB4 PO; METO-335 PO; METO-336 PO; METO-407 PO; MULTI PO; NITR0.4T32 SL; ONDA4TAB13 PO; OXYC-279 PO; PANT40TA3 PO; SPIR25TA PO
[2018-12-12] MEDS ORDERED: SODIUM CHLORIDE 0.9% 1L BAG IV* STA (15:26)
[2018-12-12] MEDS ORDERED: CEFEPIME 2GM/50 ML (PMX) 50 ML IVPB STA (17:05)
[2018-12-12] MEDS ORDERED: VANCOMYCIN 1 GM (PMX) 250 ML IVPB ONE ×2 (17:30→18:30)
[2018-12-12] MEDS ORDERED: PANTOPRAZOLE IV 80 MG in SOD CHLORIDE 0.9% 100 ML IVPB STA (18:21)
[2018-12-12] MEDS ORDERED: PANTOPRAZOLE IV 80 MG in SOD CHLORIDE 0.9% 100 ML IV STA (18:21)
[2018-12-12] MEDS ORDERED: PIPER-TAZO 3.375 GM IV (PMX) 100 ML IVPB ONE (18:30)
[2018-12-12] MEDS ORDERED: ONDANSETRON 4 MG INJ IV PRN (19:00)
[2018-12-12] MEDS ORDERED: ACETAMINOPHEN 325 MG TAB PO PRN ×2 (19:00→22:30)
--- NOTE | 2018-12-12 19:09 | ERD ---
ER Documentation Chief Complaint Chief Complaint BIBA for weakness and near syncope HPI As you provided by the patient's son. This is a 78-year-old gentleman who presents from residential facility for 2 episodes of near syncope. The patient tried to get up and felt lightheaded. He was helped to the ground without head trauma. I noted some coffee-ground emesis. Family notes that the patient has had 1-2 episodes of dark emesis. It appears the patient is taking Lovenox once daily to "prevent stroke ". Remainder of HPI is somewhat limited. She is full code. ROS All systems reviewed and are negative except as per history of present illness. Medications Home Meds Reported Medications Cholecalciferol* (Vitamin D3*) 1,000 Unit Tablet, 1000 UNIT PO BID, TAB 12/12/18 Acetaminophen* (Acetaminophen*) 500 MG Extra Strength Tablet, 1000 MG PO DAILY PRN for PAIN AND OR ELEVATED TEMP, TAB 12/12/18 Acetaminophen* (Acetaminophen*) 500 MG Extra Strength Tablet, 1000 MG PO Q4H PRN for PAIN 4-6/10, TAB 12/12/18 Acetaminophen* (Tylenol*) 325 Mg Tablet, 650 MG PO Q4H PRN for MILD PAIN LEVEL 1-3, TAB 12/12/18 Triamcinolone Acetonide* (Kenalog*) 0.025%-15GM Oint, 1 APPLIC TOP BID, #1 EA 12/12/18 Spironolactone* (Aldactone*) 25 Mg Tablet, 25 MG PO DAILY, #30 TAB 12/12/18 Nitroglycerin* (Nitroglycerin* SL) 0.4 Mg Tab.subl, 0.4 MG SL Q5MIN PRN for CHES T PAIN, BOTTLE 12/12/18 Lactobacillus Acidophilus (Probiotic) 1 Each Capsule, 1 CAP PO DAILY, CAP 12/12/18 Multivitamins* (Theragran*) 1 Tab Tab, 1 TAB PO DAILY, TAB 12/12/18 Metoprolol Tartrate* (Lopressor*) 100 Mg Tablet, 100 MG PO DAILY, #60 TAB HOLD FOR SBP<90 OR AP<60 12/12/18 Melatonin (Melatonin) 5 Mg Tablet, 5 MG PO HS, TAB 12/12/18 Enoxaparin Sodium* (Lovenox*) 40 Mg/0.4 Ml Syringe, 40 MG SC DAILY, SYR 12/12/18 Folic Acid* (Folic Acid*) 0.4 Mg Tablet, 0.4 MG PO BID, TAB 12/12/18 Ipratropium-Albuterol (Ipratropium-Albuterol) 0.5-3 Mg/3 Ml Ampul.neb, 3 ML INHALATION Q6, #30 VIAL 12/12/18 Diclofenac Sodium* (Voltaren* Gel) 1% -100 Gm Gel, 2 GM TOP DAILY, #1 TUB 12/12/18 Cranberry Extract (Cranberry) 425 Mg Capsule, 425 MG PO QID, CAP 12/12/18 Losartan Potassium* (Cozaar*) 25 Mg Tablet, 25 MG PO DAILY, #30 TAB HOLD IF SBP<110 OR HR<60 12/12/18 Docusate Sodium* (Colace*) 100 Mg Capsule, 100 MG PO QHS, #30 CAP 12/12/18 Atorvastatin* (Atorvastatin*) 40 Mg Tablet, 40 MG PO QHS, #30 TAB 12/12/18 Aspirin* (Aspirin* EC) 81 Mg Tablet.dr, 81 MG PO DAILY, TAB 12/12/18 Discontinued Reported Medications Benazepril Hcl* (Benazepril Hcl*) 10 Mg Tablet, 10 MG PO DAILY, #30 TAB HOLD IF SBP<110, HR<60 05/22/16 Enoxaparin Sodium* (Lovenox*) 40 Mg/0.4 Ml Syringe, 40 MG SC Q24H, SYR 05/22/16 Metoprolol Succinate* (Toprol XL*) 25 Mg Tab.sr.24h, 25 MG PO BID, #30 TAB HOLD IF SBP<110,HR<60 05/22/16 Atorvastatin* (Atorvastatin*) 40 Mg Tablet, 40 MG PO QHS, #30 TAB 05/22/16 Famotidine* (Famotidine*) 20 Mg Tablet, 20 MG PO BID, #60 TAB 05/22/16 Oxycodone HCl/Acetaminophen (Percocet 5-325 mg Tablet) 1 Each Tablet, 1 EACH PO Q3H PRN for PAIN 7-01/20, TAB 05/22/16 Acetaminophen* (Tylenol*) 325 Mg Tablet, 650 MG PO Q4H PRN for MILD PAIN LEVEL 1-3, TAB FOR FEVER 100 AND ABOVE 05/22/16 Lorazepam* (Lorazepam*) 0.5 Mg Tablet, 0.5 MG PO Q6 PRN for ANXIETY, TAB 05/22/16 Ondansetron Hcl* (Zofran*) 4 Mg Tab, 4 MG PO Q4H PRN for NAUSEA AND OR VOMITING, TAB 05/22/16 Discontinued Scripts Levofloxacin/D5w (LEVOFLOXACIN-D5W 750 MG/150 ML) 750 Mg/150 Ml Piggyback, 750 MG IV DAILY for 13 Days Prov:SENG ALEXIS M.D. 05/26/16 Allergies Allergies: Coded Allergies: No Known Allergy (Unverified , 12/12/18) PMhx/Soc History of Surgery: Yes (L ORIF ) Anesthesia Reaction: No Hx Neurological Disorder: Yes (S/P STROKE (MAR 2016)) Hx Respiratory Disorders: No Hx Cardiac Disorders: Yes (CVA, CAD, NM, STENT) Hx Psychiatric Problems: No Hx Miscellaneous Medical Probl: Yes (CVA wtih L sided hemiparesis,CAD<NM,stent,ischemic cardiomyopathy,hip fx,OR) Hx Alcohol Use: Yes Hx Substance Use: No Hx Tobacco Use: No Smoking Status: Never smoker FmHx Family History: No diabetes Physical Exam Vitals Vital Signs Date Temp Pulse Resp B/P (MAP) Pulse Ox O2 O2 Flow FiO2 Time Delivery Rate 12/12/18 78 22 120/56 100 Nasal 18:00 (77) Cannula 12/12/18 75 24 108/50 100 Nasal 16:30 (69) Cannula 12/12/18 Nasal 3 15:30 Cannula 12/12/18 98.0 86 20 96/53 (67) 95 15:19 Physical Exam General: Early male with pallor, coffee-ground emesis at the mouth Head: Normocephalic, atraumatic. Eyes: Pupils equally reactive, EOM intact ENT: Moist mucous membranes Neck: Supple, no lymphadenopathy Respiratory: Lungs clear bilaterally, no distress Cardiovascular: RRR, no murmurs, rubs, or gallops Abdominal: Soft, non-tender, non-distended, no peritoneal signs : Melena MSK: No edema, no unilateral swelling, 5/5 strength Neurologic: Alert and oriented, moving all extremities, normal speech, no focal weakness, no cerebellar signs Skin: No rash Psych: Normal mood Result Diagram: 12/12/18 1553 12/12/18 1553 Results 24 hrs Laboratory Tests Test 12/12/18 15:53 12/12/18 15:58 12/12/18 16:57 White Blood Count 16.2 10^3/ul Red Blood Count 2.67 10^6/ul Hemoglobin 7.6 g/dl Hematocrit 24.3 % Mean Corpuscular Volume 91.0 fl Mean Corpuscular Hemoglobin 28.5 pg Mean Corpuscular 31.3 g/dl Hemoglobin Concent Red Cell Distribution Width 14.5 % Platelet Count 396 10^3/UL Mean Platelet Volume 10.1 fl Immature Granulocytes % 0.600 % Neutrophils % 84.1 % Lymphocytes % 6.7 % Monocytes % 6.6 % Eosinophils % 1.7 % Basophils % 0.3 % Nucleated Red Blood Cells % 0.0 /100WBC Immature Granulocytes # 0.100 10^3/ul Neutrophils # 13.6 10^3/ul Lymphocytes # 1.1 10^3/ul Monocytes # 1.1 10^3/ul Eosinophils # 0.3 10^3/ul Basophils # 0.1 10^3/ul Nucleated Red Blood Cells # 0.0 10^3/ul Prothrombin Time 14.1 Sec Prothrombin Time Ratio 1.1 INR International 1.08 Normalized Ratio Activated Partial Thromboplast 27.6 Sec Time Sodium Level 142 mmol/L Potassium Level 4.3 mmol/L Chloride Level 110 mmol/L Carbon Dioxide Level 22 mmol/L Anion Gap 10 Blood Urea Nitrogen 54 mg/dl Creatinine 1.26 mg/dl Est Glomerular Filtrat mL/min Rate mL/min Glucose Level 142 mg/dl Calcium Level 8.8 mg/dl Total Bilirubin 0.3 mg/dl Direct Bilirubin 0.00 mg/dl Indirect Bilirubin 0.3 mg/dl Aspartate Amino Transf (AST/SGOT) 19 IU/L Alanine 25 IU/L Aminotransferase (ALT/SGPT) Alkaline Phosphatase 63 IU/L Troponin I 0.047 ng/ml Total Protein 5.5 g/dl Albumin 2.6 g/dl Globulin 2.90 g/dl Albumin/Globulin Ratio 0.89 POC Venous Lactate 2.2 mmol/L Urine Color YELLOW Urine Clarity SLIGHTLY CLOUDY Urine pH 5.0 Urine Specific Datto 1.021 Urine Ketones NEGATIVE mg/dL Urine Nitrite NEGATIVE mg/dL Urine Bilirubin NEGATIVE mg/dL Urine Urobilinogen 1+ mg/dL Urine Leukocyte Esterase TRACE Roico/ul Urine Microscopic RBC 1 /HPF Urine Microscopic WBC 6 /HPF Urine Bacteria MANY /HPF Urine Hemoglobin NEGATIVE mg/dL Urine Glucose NEGATIVE mg/dL Urine Total Protein NEGATIVE mg/dl Current Medications Medications Dose Sig/Aretha Start Time Status Last (Trade) Ordered Route PRN Stop Time Admin Dose Reason Admin Sodium 2,310 ml BOLUS OVER 2 12/12/18 DC 12/12/18 Chloride HOURS STAT 15:26 12/12/18 15:46 (NS) IV* 15:29 Cefepime HCl 50 ml @ ONCE STAT 12/12/18 DC 12/12/18 100 mls/hr IVPB 17:05 12/12/18 17:10 17:34 Vancomycin 250 ml @ ONCE ONCE 12/12/18 12/12/18 HCl 125 mls/hr IVPB 17:30 12/12/18 18:01 19:29 Pantoprazole 100 ml @ ONCE STAT 12/12/18 DC 12/12/18 80 mg/Sodium 400 mls/hr IVPB 18:21 12/12/18 18:55 Chloride 18:35 Pantoprazole 100 ml @ ONCE STAT 12/12/18 12/12/18 80 mg/Sodium 10 mls/hr IV 18:21 12/13/18 18:55 Chloride 04:20 Piperacillin 100 ml @ ONCE ONCE 12/12/18 DC Sod/ 200 mls/hr IVPB 18:30 12/12/18 Tazobactam 18:59 Sod Vancomycin 250 ml @ ONCE ONCE 12/12/18 Cancel HCl 125 mls/hr IVPB 18:30 12/12/18 20:29 Ondansetron 4 mg ER BRIDGE 12/12/18 HCl (Zofran PRN IV 19:00 12/13/18 Inj) NAUSEA/VOMITI 18:59 NG 650 mg ER BRIDGE 12/12/18 Acetaminophen PRN PO 19:00 12/13/18 (Tylenol .MILD PAIN 18:59 Tab) 1-3 OR TEMP Procedures/MDM EKG, MONITORS, & DIAGNOSTIC IMAGING: EKG: I reviewed and interpreted a 12-lead EKG. Rhythm: Normal sinus rhythm ST Changes: No contiguous ST segment elevations T waves: No contiguous T wave inversions Impression: No evidence of acute cardiac ischemia CXR IMPRESSION: There is a moderate left pleural effusion as well as left lung base consolidation. There is right lung base consolidation. There are increased interstitial markings. Follow-up to resolution to exclude underlying neoplasm. RPTAT: QQ CT a/p IMPRESSION: 1. EXTENSIVE SIGMOID DIVERTICULOSIS. THERE IS THICKENING OF THE FUENTES OF THE RECTOSIGMOID COLON SUGGESTIVE OF MILD DIVERTICULITIS. RECOMMEND FOLLOW UP AFTER TREATMENT. 2. Moderate amount of stool noted throughout large bowel within the rectum suggestive of constipation and mild fecal impaction. 3. Atherosclerosis of the aorta. 4. Left-sided nonobstructing renal stone. No evidence of obstructive uropathy. 5. Cholelithiasis. 6. No evidence of free fluid or free air. No gross focal fluid collections. LAB INTERPRETATION: I reviewed the laboratory testing and it shows leukocytosis, anemia, lactic acid of 2.2 MEDICAL DECISION MAKING: The patient presents with multiple issues including episodes of near syncope. Initial blood pressure was borderline, saturation was low. Consider possible infectious etiology but also consider possible GI bleed given coffee-ground markings around the mouth. ER COURSE: * IV was established. Fluid resuscitation provided. The tolerated patient tolerated the fluid nicely despite the known history of cardiomyopathy. * It is unclear why the patient is receiving Lovenox once daily injections to prevent stroke. This treatment method does not make sense. The patient's last dose of Lovenox was at 7 AM. No indication for reversal at this time. * Diagnostic imaging reveals possible pulmonary malignancy and CT imaging of the abdomen pelvis shows evidence of diverticulitis. * Based on these findings, blood cultures were already taken. The patient was given broad-spectrum antibiotics the lower concern for infectious process. * PPI bolus and drip initiated. * Hemoglobin greater than 7 no indication for transfusion at this time. Type and screen has been sent * GI, Dr. Freeman notified. Agrees with care CONSULTATION: Gastroenterology DISPOSITION PLAN: Tele Accepting care team and consultations: I discussed the current laboratory data, diagnostic imaging and emergency care provided. Admitting team: Dr. Phillips Admitting team indication: Insurance directed Sepsis Documentation: *It should be noted that I believe the patient's clinical exam presentation is more consistent with a GI bleed rather than sepsis or infectious etiology though the patient has multiple abnormalities that could represent infectious source. For this reason the patient was treated as possible sepsis but lower pretest probability for this process. Patient's infectious symptoms have not stabilized and the patient is at risk of rapid decompensation. The patient will be admitted for careful hydration, antibiotic therapy, and infectious source control. SEVERE SEPSIS CRITERIA: Infectious source: Possible acute diverticulitis End organ damage indicated by: [Lactate > 2.0 mmol/L SEPSIS MANAGEMENT Time of recognition of sepsis: [address] report was filed showing source of infection Time of recognition of severe sepsis: 1827 Time of recognition of septic shock: No septic shock at this time. 3 HOUR BUNDLE Blood cultures x 2 before broad-spectrum antibiotics: Yes 30 ml/kg NS bolus completed Initial lactate 2.2 Repeat lactate pending repeat SEPTIC SHOCK ASSESSMENT: No lactic acid > 4.0 No persistent hypotension (SBP < 90 or 40 mmHg drop, MAP < 65) despite 30 mL/kg IV fluid bolus VOLUME REASSESSMENT FOR SEPTIC SHOCK: The patient does not meet criteria for septic shock in the emergency department at this time I considered further perfusion assessment with CVP measurement, SCVO2, bedside ultrasound volume assessment, passive leg raise, trial of further fluid bolus. And proceeded with 30 ml/kg fluid bolus of NSS, broad spectrum antibiotics, and admission. CRITICAL CARE Critical care time 35 minutes Emergent fluid management while maintaining close respiratory support. Provision of immediate and broad-spectrum antibiotic therapy. Simultaneous assessment for possible sources in order to direct targeted therapy. Consideration for invasive and chemical support to prevent cardiopulmonary collapse. Critical care time is independent of procedures performed. Departure Diagnosis: Primary Impression: Upper GI bleeding Additional Impressions: Acute diverticulitis Severe sepsis Condition: RUBA Ervin MD Dec 12, 2018 19:09
[2018-12-12 22:00] VITALS: Ht 170.2 cm; Wt 77.0 kg
[2018-12-12 22:23] VITALS: BP 101/55; PULSE 75; RESP 17
[2018-12-12] MEDS: PANTOPRAZOLE IV 80 MG in SOD CHLORIDE 0.9% 100 ML IV SCH (22:54)
[2018-12-12] MEDS ORDERED: PANTOPRAZOLE IV 80 MG in SOD CHLORIDE 0.9% 100 ML IVPB ONE (23:00)
[2018-12-12] MEDS: SOD CHLORIDE 0.9% 1,000 ML IV SCH (23:24)
[2018-12-13] VITALS (9 sets, daily range): BP systolic 82–111; BP diastolic 46–61; PULSE 65–92; RESP 17–23
[2018-12-13] MEDS ORDERED: ALBUTEROL/IPRATROPIUM (NEB) 3 ML AMP HHN SCH
--- NOTE | 2018-12-13 00:28 | QN ---
Documentation Comment H&P dict a/p 1. gi: probable upper gi bleed (b) doubt diverticulitis 2. leukocytosis, monitor 3. ckd3, creat at baseline 4. old cva wth L hemiparesis 5. cognitive impairment BJ ESTRELLA MD Dec 13, 2018 00:28
--- NOTE | 2018-12-13 03:08 | HP ---
DATE OF ADMISSION: 12/12/2018 CHIEF COMPLAINT: Weakness. HISTORY OF PRESENT ILLNESS: Mr. Frost is transferred from [facility] where he is a cus todial resident after having an episode of unresponsiveness. Apparently, he was up in the bathroom w ith his son when he became unresponsive and was immediately assisted back to bed with the assistance of 2 nurses. The patient has zero recollection of these events and son is not available at this time . PAST MEDICAL HISTORY: According to the documentation from the [facility] facility includes: 1. Stroke with left hemiparesis. 2. Hyperlipidemia. 3. GERD. 4. Hypertension. MEDICATIONS: As an outpatient include: 1. Aspirin 81 mg daily. 2. Lipitor 40 mg daily. 3. Colace 100 mg at bedtime. 4. Cozaar 25 mg daily. 5. Diclofenac gel. 6. DuoNeb. 7. Folate. 8. Lovenox. 9. Melatonin. 10. Metoprolol 100 mg daily. 11. Nitroglycerin as needed. 12. Aldactone 25 mg daily. 13. Triamcinolone to left elbow. ALLERGIES: NO KNOWN DRUG ALLERGIES. SOCIAL HISTORY: The patient is a shelter resident at [facility] following his stroke. FAMILY HISTORY: Unobtainable. REVIEW OF SYSTEMS: Five systems reviewed and found not to be revealing. PHYSICAL EXAMINATION: VITAL SIGNS: Blood pressure is 97/46, pulse rate 65, respirations 20, temperature is 98.1. GENERAL: Pleasant elderly man in no acute distress. Alert and oriented to person and place, not to time or purpose. HEENT: Normocephalic, atraumatic without evident scleral icterus, perioral cyanosis. Mucous membran es are dry. NECK: Soft Supple without masses. No evidence of jugular venous distention or carotid bruits. CHEST: Clear to auscultation and percussion anteriorly. HEART: Regular rate and rhythm. S1, S2. No added sounds. ABDOMEN: Soft, nontender, nondistended without palpable hepatosplenomegaly. EXTREMITIES: Without clubbing, cyanosis or edema. SKIN: Without rashes. NEUROLOGIC: Grossly intact. LABORATORY STUDIES: Performed here at [facility] show a hemoglobin of 7.6 g/dL, white count of 16,200, platelets of 396,000. INR 1.08. Sodium 142, potassium 4.3, chloride 110, bicarbonate 22 , BUN 54, creatinine 1.26, glucose 142. Liver function tests are unremarkable. UA is negative for s igns of infection. The patient has laboratory studies which accompany him from [facility] , which show that on 11/09/2018, he had a hemoglobin of 11.9 and a creatinine of 1.32. He similarly has studies from 10/13/2018, which reveal a creatinine of 1.31 and a hemoglobin of 13.7. It should b e noted that in the documentation sent from the intermediate, the nurses at that location felt that iwona leong had coffee-ground emesis in the toilet at the time of his unresponsiveness. ASSESSMENT AND PLAN: 1. Gastrointestinal: The patient with probable upper GI bleeding. We will plan to treat with Ramya nix, IV fluids, transfuse as necessary, obtain GI evaluation. 2. Chronic renal insufficiency, currently stable. 3. Dementia. 4. Old stroke. 5. Leukocytosis felt at this time to be related to bleeding as opposed to any infectious etiology at this time even though patient does have a CT scan of the abdomen and pelvis which is equivocal as to whether or not he has diverticulosis versus diverticulitis. The fact he has no abdominal tenderness , I feel makes infectious etiology less likely. Dictated By: BJ ESTRELLA MD RER/NTS Conf#: [id number] DID#: [id number]
[2018-12-13] MEDS ORDERED: FUROSEMIDE 40 MG INJ IV SCH (07:00)
[2018-12-13] MEDS: SOD CHLORIDE 0.9% 1,000 ML IV SCH ×3 (07:00→23:02)
[2018-12-13] MEDS ORDERED: ACETAMINOPHEN 325 MG TAB PO ONE (07:00)
[2018-12-13] MEDS: TRIAMCINOLONE ACET 0.025% 15 GM OINT TOP SCH ×2 (08:58→20:42)
[2018-12-13] MEDS: SENNA/DOCUSATE NA (8.6MG/50MG) TAB PO SCH ×2 (08:58→20:41)
[2018-12-13] MEDS: PANTOPRAZOLE IV 80 MG in SOD CHLORIDE 0.9% 100 ML IV SCH ×3 (09:00→18:36)
[2018-12-13] MEDS: METOPROLOL 100 MG TAB PO SCH (09:00)
[2018-12-13] MEDS: MULTIVITAMINS THERAPEUTIC TAB PO SCH (09:00)
[2018-12-13] MEDS: ALBUTEROL/IPRATROPIUM (NEB) 3 ML AMP HHN SCH ×3 (09:24→19:52)
[2018-12-13] MEDS ORDERED: SOD CHLORIDE 0.9% 1,000 ML IV ONE (12:00)
--- NOTE | 2018-12-13 15:56 | CONS ---
Assessment/Plan Assessment/Plan Assessment/Plan (Daily) Assessment: Anemia Upper GI bleeding Melena GERD hyperlipidemia Hx of stroke Hx of CHF Hx of prior [place] Plan: Discussed in detail with patient's son Chris the need for upper endoscopy. The benefits, alternatives, risks and complications of the procedure were discussed in detail. Reiterated with him we do recommend his father undergo EGD to evaluate source of GI bleeding. The patient's son does not wish to proceed with any procedures at this point as he has prior bad experiences with his mother who had complications from an EGD for varices. He would like to continue monitoring and supportive care for now. Continue to hold anticoagulation Continue protonix infusion. Monitor H/H closely and check post transfusion. Would check FOBT. Transfuse as needed to keep Hgb greater than 7.5 Can advance to clear liquid diet Patient seen in collaboration with Dr. Freeman. CC: YOLY FREEMAN MD ; Consultation Date/Type/Reason Admit Date/Time Dec 12, 2018 at 18:53 Date of Consultation: Dec 13, 2018 Type of Consult gastroenterology Reason for Consultation anemia, possible GI bleeding Requesting Provider: BJ ESTRELLA MD Date/Time of Note DATE: 12/13/18 TIME: 15:41 Hx of Present Illness Mr. Frost is an 78 y/o male with a history of stroke with left hemiparesis, prior [place], hyperlipidemia and HTN, GERD, who was admitted from assisted living facility for a syncopal episode. The history is obtained from patient son, Chris who is also DPOA, and states he was getting Lovenox shots at home because he "doesn't move around much." He reports the patient was noted to have black tarry stools at the assisted living facility. The patient never had any abdominal pain, nausea or vomiting, chest pain, or palpitations. He did have epistaxis. He denies any history of prior colonoscopy or EGD. A 10 point review of systems is otherwise negative except as mentioned in the above HPI. Subjective hx not possible: pt non-verbal Constitutional: disoriented Past Medical History Medical History: congestive heart failure, coronary artery disease Home Meds Reported Medications Cholecalciferol* (Vitamin D3*) 1,000 Unit Tablet, 1000 UNIT PO BID, TAB 12/12/18 Acetaminophen* (Acetaminophen*) 500 MG Extra Strength Tablet, 1000 MG PO DAILY PRN for PAIN AND OR ELEVATED TEMP, TAB 12/12/18 Acetaminophen* (Acetaminophen*) 500 MG Extra Strength Tablet, 1000 MG PO Q4H PRN for PAIN 4-610, TAB 12/12/18 Acetaminophen* (Tylenol*) 325 Mg Tablet, 650 MG PO Q4H PRN for MILD PAIN LEVEL 1-3, TAB 12/12/18 Triamcinolone Acetonide* (Kenalog*) 0.025%-15GM Oint, 1 APPLIC TOP BID, #1 EA 12/12/18 Spironolactone* (Aldactone*) 25 Mg Tablet, 25 MG PO DAILY, #30 TAB 12/12/18 Nitroglycerin* (Nitroglycerin* SL) 0.4 Mg Tab.subl, 0.4 MG SL Q5MIN PRN for CHEST PAIN, BOTTLE 12/12/18 Lactobacillus Acidophilus (Probiotic) 1 Each Capsule, 1 CAP PO DAILY, CAP 12/12/18 Multivitamins* (Theragran*) 1 Tab Tab, 1 TAB PO DAILY, TAB 12/12/18 Metoprolol Tartrate* (Lopressor*) 100 Mg Tablet, 100 MG PO DAILY, #60 TAB HOLD FOR SBP<90 OR AP<60 12/12/18 Melatonin (Melatonin) 5 Mg Tablet, 5 MG PO HS, TAB 12/12/18 Enoxaparin Sodium* (Lovenox*) 40 Mg/0.4 Ml Syringe, 40 MG SC DAILY, SYR 12/12/18 Folic Acid* (Folic Acid*) 0.4 Mg Tablet, 0.4 MG PO BID, TAB 12/12/18 Ipratropium-Albuterol (Ipratropium-Albuterol) 0.5-3 Mg/3 Ml Ampul.neb, 3 ML INHALATION Q6, #30 VIAL 12/12/18 Diclofenac Sodium* (Voltaren* Gel) 1% -100 Gm Gel, 2 GM TOP DAILY, #1 TUB 12/12/18 Cranberry Extract (Cranberry) 425 Mg Capsule, 425 MG PO QID, CAP 12/12/18 Losartan Potassium* (Cozaar*) 25 Mg Tablet, 25 MG PO DAILY, #30 TAB HOLD IF SBP<110 OR HR<60 12/12/18 Docusate Sodium* (Colace*) 100 Mg Capsule, 100 MG PO QHS, #30 CAP 12/12/18 Atorvastatin* (Atorvastatin*) 40 Mg Tablet, 40 MG PO QHS, #30 TAB 12/12/18 Aspirin* (Aspirin* EC) 81 Mg Tablet.dr, 81 MG PO DAILY, TAB 12/12/18 Discontinued Reported Medications Benazepril Hcl* (Benazepril Hcl*) 10 Mg Tablet, 10 MG PO DAILY, #30 TAB HOLD IF SBP<110, HR<60 05/22/16 Enoxaparin Sodium* (Lovenox*) 40 Mg/0.4 Ml Syringe, 40 MG SC Q24H, SYR 05/22/16 Metoprolol Succinate* (Toprol XL*) 25 Mg Tab.sr.24h, 25 MG PO BID, #30 TAB HOLD IF SBP<110,HR<60 05/22/16 Atorvastatin* (Atorvastatin*) 40 Mg Tablet, 40 MG PO QHS, #30 TAB 05/22/16 Famotidine* (Famotidine*) 20 Mg Tablet, 20 MG PO BID, #60 TAB 05/22/16 Oxycodone HCl/Acetaminophen (Percocet 5-325 mg Tablet) 1 Each Tablet, 1 EACH PO Q3H PRN for PAIN -01/20, TAB 05/22/16 Acetaminophen* (Tylenol*) 325 Mg Tablet, 650 MG PO Q4H PRN for MILD PAIN LEVEL 1-3, TAB FOR FEVER 100 AND ABOVE 05/22/16 Lorazepam* (Lorazepam*) 0.5 Mg Tablet, 0.5 MG PO Q6 PRN for ANXIETY, TAB 05/22/16 Ondansetron Hcl* (Zofran*) 4 Mg Tab, 4 MG PO Q4H PRN for NAUSEA AND OR VOMITING, TAB 05/22/16 Discontinued Scripts Levofloxacin/D5w (LEVOFLOXACIN-D5W 750 MG/150 ML) 750 Mg/150 Ml Piggyback, 750 MG IV DAILY for 13 Days Prov:SENG ALEXIS M.D. 05/26/16 Medications Current Medications Acetaminophen (Tylenol Tab) 650 mg Q4H PRN PO MILD PAIN LEVEL 1-3; Start 12/12/18 at 22:30 Atorvastatin Calcium (Lipitor) 40 mg QHS PO ; Start 12/13/18 at 21:00 Melatonin (Melatonin) 5 mg HS PO ; Start 12/13/18 at 21:00 Metoprolol Tartrate (Lopressor) 100 mg DAILY PO ; Start 12/13/18 at 09:00 Multivitamins Therapeutic (Theragran) 1 tab DAILY PO Last administered on 12/13/18at 09:00; Admin Dose 1 TAB; Start 12/13/18 at 09:00 Triamcinolone Acetonide (Kenalog 0.025% Oint) 1 applic BID TOP Last a dministered on 12/13/18 08:58; Admin Dose 1 APPLIC; Start 12/13/18 at 09:00 Sodium Chloride 1,000 ml @ 125 mls/hr Q8H IV Last administered on 12/13/18at 15:20; Admin Dose 125 MLS/HR; Start 12/12/18 at 23:00 Pantoprazole 80 mg/Sodium Chloride 100 ml @ 10 mls/hr Q10H IV Last administered on 12/13/18at 11:10; Admin Dose 10 MLS/HR; Start 12/12/18 at 23:00 Senna/Docusate Sodium (Senokot-S) 2 tab BID PO Last administered on 12/13/18at 08:58; Admin Dose 2 TAB; Start 12/13/18 at 09:00 Hydralazine HCl (Apresoline) 25 mg Q6H PRN PO sbp>160; Start 12/12/18 at 23:00 Albuterol/ Ipratropium (Duoneb) 3 ml Q6H RESP THERAPY HHN Last administered on 12/13/18at 09:24; Admin Dose 3 ML; Start 12/13/18 at 08:00 Furosemide (Lasix) 40 mg ONCE IV ; Start 12/13/18 at 07:00; Stop 12/13/18 at 17:00 Allergies: Coded Allergies: No Known Allergy (Unverified , 12/12/18) Past Surgical History Past Surgical Hx: angioplasty Social History Smoking Status: Never smoker Exam/Review of Systems Exam Vitals Vital Signs Date Temp Pulse Resp B/P (MAP) Pulse Ox O2 O2 Flow FiO2 Time Delivery Rate 12/13/18 78 101/54 13:56 (70) 12/13/18 98.5 20 96 Nasal 2.0 11:30 Cannula 12/13/18 27 09:45 Intake and Output 12/12/18 12/12/18 12/13/18 1515:00 23:00 07:00 IntakeIntake Total 820 ml BalanceBalance 820 ml Constitutional: alert, frail, other (somnolent) Psych: no complaints, confusion Head: normocephalic, atraumatic Eyes: nl conjunctiva, EOMI ENMT: nl external ears & nose, nl lips & teeth Neck: supple Respiratory: clear to auscultation, normal air movement Cardiovascular: regular rate and rhythm Gastrointestinal: soft, non-tender Musculoskeletal: nl extremities to inspection Neurological: other (somnolent) Skin: nl turgor Lymph: nl lymph nodes Results Result Diagram: 12/13/1852112/13/18521 Results 24hrs Laboratory Tests Test 12/12/18 15:53 12/12/18 15:58 12/12/18 16:57 12/12/18 19:20 White Blood Count 16.2 #H Red Blood Count 2.67 #L Hemoglobin 7.6 #L Hematocrit 24.3 #L Mean Corpuscular 91.0 Volume Mean Corpuscular 28.5 L Hemoglobin Mean Corpuscular 31.3 L Hemoglobin Concent Red Cell 14.5 Distribution Width Platelet Count 396 Mean Platelet 10.1 Volume Immature 0.600 H Granulocytes % Neutrophils % 84.1 H Lymphocytes % 6.7 L Monocytes % 6.6 Eosinophils % 1.7 Basophils % 0.3 Nucleated Red 0.0 Blood Cells % Immature 0.100 H Granulocytes # Neutrophils # 13.6 H Lymphocytes # 1.1 Monocytes # 1.1 H Eosinophils # 0.3 Basophils # 0.1 Nucleated Red 0.0 Blood Cells # Prothrombin Time 14.1 Prothrombin Time 1.1 Ratio INR International 1.08 Normalized Ratio Activated 27.[address] Time Sodium Level 142 Potassium Level 4.3 Chloride Level 110 Carbon Dioxide 22 Level Anion Gap 10 Blood Urea 54 H Nitrogen Creatinine 1.26 H Est Glomerular Filtrat Rate mL/min Glucose Level 142 Calcium Level 8.8 Total Bilirubin 0.3 Direct Bilirubin 0.00 Indirect Bilirubin 0.3 Aspartate Amino 19 Transf (AST/SGOT) Alanine 25 Aminotransferase ( ALT/SGPT) Alkaline 63 Phosphatase Troponin I 0.047 Total Protein 5.5 L Albumin 2.6 L Globulin 2.90 Albumin/Globulin 0.89 Ratio POC Venous Lactate 2.2 *H Urine Color YELLOW Urine Clarity SLIGHTLY CLOUDY A Urine pH 5.0 Urine Specific 1.021 [place] Urine Ketones NEGATIVE Urine Nitrite NEGATIVE Urine Bilirubin NEGATIVE Urine Urobilinogen 1+ H Urine Leukocyte TRACE A Esterase Urine Microscopic 1 RBC Urine Microscopic 6 H WBC Urine Bacteria MANY A Urine Hemoglobin NEGATIVE Urine Glucose NEGATIVE Urine Total NEGATIVE Protein Lactic Acid Level 1.3 Test 12/12/18 22:49 12/13/18 05:21 12/13/18 05:22 Lactic Acid Level 1.5 Vitamin B12 Level < 159 L Folate > 20.0 H White Blood Count 13.0 H Red Blood Count 2.46 L Hemoglobin 6.7 *L Hematocrit 22.9 L Mean Corpuscular 93.1 Volume Mean Corpuscular 27.2 L Hemoglobin Mean Corpuscular 29.3 L Hemoglobin Concent Red Cell 14.6 H Distribution Width Platelet Count 336 Mean Platelet 10.7 H Volume Immature 0.500 H Granulocytes % Neutrophils % 78.0 H Segmented 68 Neutrophils % (Manual) Band Neutrophils % 12 H (Manual) Lymphocytes % 11.1 L Lymphocytes % 7 L (Manual) Monocytes % 6.4 Monocytes % 7 (Manual) Eosinophils % 3.8 Eosinophils % 4 (Manual) Basophils % 0.2 Myelocytes % 2 H (Manual) Nucleated Red 0.0 Blood Cells % Immature 0.070 H Granulocytes # Neutrophils # 10.1 H Neutrophils # 9.0 H (Manual) Band Neutrophils # 1.5 H Lymphocytes 0.9 (Manual) Lymphocytes # 1.4 Monocytes # 0.8 Monocytes # 0.9 (Manual) Eosinophils # 0.5 Basophils # 0.0 Myelocytes # 0.2 H Nucleated Red 0.0 Blood Cells # Platelet Estimate NORMAL Polychromasia 3+ Poikilocytosis 1+ Ovalocytes 1+ Sodium Level 140 Potassium Level 4.4 Chloride Level 117 H Carbon Dioxide 18 L Level Anion Gap 5 Blood Urea 37 #H Nitrogen Creatinine 1.11 Est Glomerular Filtrat Rate mL/min Glucose Level 83 # Calcium Level 8.7 Iron Level < 10 L Total Iron Binding 264 Capacity Percent Iron Saturation Medications Medication Current Medications Acetaminophen (Tylenol Tab) 650 mg Q4H PRN PO MILD PAIN LEVEL 1-3; Start 12/12/18 at 22:30 Atorvastatin Calcium (Lipitor) 40 mg QHS PO ; Start 12/13/18 at 21:00 Melatonin (Melatonin) 5 mg HS PO ; Start 12/13/18 at 21:00 Metoprolol Tartrate (Lopressor) 100 mg DAILY PO ; Start 12/13/18 at 09:00 Multivitamins Therapeutic (Theragran) 1 tab DAILY PO Last administered on 12/13/18at 09:00; Admin Dose 1 TAB; Start 12/13/18 at 09:00 Triamcinolone Acetonide (Kenalog 0.025% Oint) 1 applic BID TOP Last administered on 12/13/18 08:58; Admin Dose 1 APPLIC; Start 12/13/18 at 09:00 Sodium Chloride 1,000 ml @ 125 mls/hr Q8H IV Last administered on 12/13/18 15:20; Admin Dose 125 MLS/HR; Start 12/12/18 at 23:00 Pantoprazole 80 mg/Sodium Chloride 100 ml @ 10 mls/hr Q10H IV Last administered on 12/13/18at 11:10; Admin Dose 10 MLS/HR; Start 12/12/18 at 23:00 Senna/Docusate Sodium (Senokot-S) 2 tab BID PO Last administered on 12/13/18at 08:58; Admin Dose 2 TAB; Start 12/13/18 at 09:00 Hydralazine HCl (Apresoline) 25 mg Q6H PRN PO sbp>160; Start 12/12/18 at 23:00 Albuterol/ Ipratropium (Duoneb) 3 ml Q6H RESP THERAPY HHN Last administered on 12/13/18 09:24; Admin Dose 3 ML; Start 12/13/18 at 08:00 Furosemide (Lasix) 40 mg ONCE IV ; Start 12/13/18 at 07:00; Stop 12/13/18 at 17:00 CAITLIN SOMMERS NP Dec 13, 2018 15:55
[2018-12-13] MEDS: MELATONIN 5 MG TABLET PO SCH (20:41)
[2018-12-13] MEDS: ATORVASTATIN 40 MG TAB PO SCH (20:42)
[2018-12-14] MEDS: ALBUTEROL/IPRATROPIUM (NEB) 3 ML AMP HHN SCH ×4 (01:33→20:17)
[2018-12-14 03:57] VITALS: BP 111/51; PULSE 114; RESP 23
[2018-12-14] MEDS: PANTOPRAZOLE IV 80 MG in SOD CHLORIDE 0.9% 100 ML IV SCH ×2 (05:14→15:18)
[2018-12-14] MEDS: SOD CHLORIDE 0.9% 1,000 ML IV SCH ×2 (06:27→15:18)
[2018-12-14 07:26] VITALS: BP 94/54; PULSE 90; RESP 19
[2018-12-14] MEDS: MULTIVITAMINS THERAPEUTIC TAB PO SCH (08:26)
[2018-12-14] MEDS: SENNA/DOCUSATE NA (8.6MG/50MG) TAB PO SCH ×2 (08:26→21:09)
[2018-12-14] MEDS: METOPROLOL 100 MG TAB PO SCH (08:27)
[2018-12-14] MEDS: TRIAMCINOLONE ACET 0.025% 15 GM OINT TOP SCH ×2 (08:27→21:09)
[2018-12-14 12:08] VITALS: BP 101/52; PULSE 63; RESP 18
--- NOTE | 2018-12-14 12:13 | PN ---
Date/Time of Note Date/Time of Note DATE: 12/14/18 TIME: 12:12 Assessment/Plan VTE Prophylaxis Risk score (from Ns)>0 risk: 6 SCD applied (from Ns): Yes Pharmacological prophylaxis: NA/contraindicated Pharm contraindication: bleeding Lines/Catheters IV Catheter Type (from Nrsg): Mid Line Urinary Cath still in place: No Assessment/Plan Assessment/Plan 1. gi: presumed gi bleed, presumed related to ulcer, possible ASA induced, cont protonix, (b) anemia work up show low Fe and B12, replete (c) refuses transfusion (witness) (d) refusesd endoscopy, cont to monitor Result Diagram: 12/13/1852112/13/18521 Subjective 24 Hr Interval Summary Free Text/Dictation no complaints no pain Exam/Review of Systems Exam Vitals Vital Signs Date Temp Pulse Resp B/P (MAP) Pulse Ox O2 O2 Flow FiO2 Time Delivery Rate 12/14/18 Nasal 2.0 08:00 Cannula 12/14/18 98.4 90 19 94/54 (67) 99 07:26 12/13/18 27 09:45 Intake and Output 12/13/18 12/13/18 12/14/18 1515:00 23:00 07:00 IntakeIntake Total 1000 ml 1620 ml 50 ml OutputOutput Total 1600 ml BalanceBalance 1000 ml 1620 ml -1550 ml Exam nad, soft nt, ctab, rrr Medications Medication Current Medications Acetaminophen (Tylenol Tab) 650 mg Q4H PRN PO MILD PAIN LEVEL 1-3; Start 12/12/18 at 22:30 Atorvastatin Calcium (Lipitor) 40 mg QHS PO Last administered on 12/13/18at 20:42; Admin Dose 40 MG; Start 12/13/18 at 21:00 Melatonin (Melatonin) 5 mg HS PO Last administered on 12/13/18at 20:41; Admin Dose 5 MG; Start 12/13/18 at 21:00 Metoprolol Tartrate (Lopressor) 100 mg DAILY PO ; Start 12/13/18 at 09:00 Multivitamins Therapeutic (Theragran) 1 tab DAILY PO Last administered on 12/14/18at 08:26; Admin Dose 1 TAB; Start 12/13/18 at 09:00 Triamcinolone Acetonide (Kenalog 0.025% Oint) 1 applic BID TOP Last administered on 12/14/18at 08:27; Admin Dose 1 APPLIC; Start 12/13/18 at 09:00 Sodium Chloride 1,000 ml @ 125 mls/hr Q8H IV Last administered on 12/14/18at 06:27; Admin Dose 125 MLS/HR; Start 12/12/18 at 23:00 Pantoprazole 80 mg/Sodium Chloride 100 ml @ 10 mls/hr Q10H IV Last administered on 12/14/18at 05:14; Admin Dose 10 MLS/HR; Start 12/12/18 at 23:00 Senna/Docusate Sodium (Senokot-S) 2 tab BID PO Last administered on 12/14/18at 08:26; Admin Dose 2 TAB; Start 12/13/18 at 09:00 Hydralazine HCl (Apresoline) 25 mg Q6H PRN PO sbp>160; Start 12/12/18 at 23:00 Albuterol/ Ipratropium (Duoneb) 3 ml Q6H RESP THERAPY HHN Last administered on 12/14/18at 07:20; Admin Dose 3 ML; Start 12/13/18 at 08:00 Ferric Sodium Gluconate Complex 125 mg/Sodium Chloride 110 ml @ 110 mls/hr DAILY@1300 IVPB ; Start 12/14/18 at 13:00; Stop 12/18/18 at 13:59; Status UNV Cyanocobalamin (Vitamin B12 Inj) 1,000 mcg DAILY IM ; Start 12/14/18 at 12:30; Status UNV BJ ESTRELLA MD Dec 14, 2018 12:13
[2018-12-14] MEDS: SOD FERRIC GLUC COMPLX 125 MG in SOD CHLORIDE 0.9% 100 ML IVPB SCH (14:01)
[2018-12-14] MEDS: CYANOCOBALAMIN 1000 MCG INJ IM SCH (14:01)
--- NOTE | 2018-12-14 15:31 | PN ---
CAITLIN SOMMERS NP 12/14/18 1531: Date/Time of Note Date/Time of Note DATE: 12/14/18 TIME: 15:24 Assessment/Plan VTE Prophylaxis Risk score (from [facility])>0 risk: 6 SCD applied (from [facility]): Yes Pharmacological prophylaxis: NA/contraindicated Pharm contraindication: bleeding Lines/Catheters IV [facility] (from [facility] Mid Line Urinary Cath still in place: No Assessment/Plan Assessment/Plan Assessment: Anemia, acute drop in Hgb Upper GI bleeding Melena GERD hyperlipidemia Hx of stroke Hx of CHF Hx of prior [place] Plan: Patient's son refused blood transfusion as patient is [employer]'s Witness. Continues to decline endoscopy. Discussed the need for blood transfusion in the setting of potentially life threatening anemia. Continue to hold anticoagulation Continue protonix infusion. Monitor H/H closely Would check FOBT. Transfuse as needed to keep Hgb greater than 7.5 Can advance to clear liquid diet Patient seen in collaboration with Dr. Freeman Subjective: Patient is seen in room, comfortable, somnolent. Patient is a Jehova witness and declines blood tranfusions. Hemoglobin 5.9 today, acute drop from 6.7 yesterday. Patient's son Chris declines endoscopy unless severe bleeding and further worsening anemia. Will continue to monitor H/H and patient's vitals closely. Constitutional: alert, frail, other (somnolent) Psych: no complaints, confusion Head: normocephalic, atraumatic Eyes: nl conjunctiva, EOMI ENMT: nl external ears & nose, nl lips & teeth Neck: supple Respiratory: clear to auscultation, normal air movement Cardiovascular: regular rate and rhythm Gastrointestinal: soft, non-tender Musculoskeletal: nl extremities to inspection Neurological: other (somnolent) Skin: nl turgor, pallor Lymph: nl lymph nodes Result Diagram: 12/14/18 1318 12/13/18 0522 Results 24hrs Laboratory Tests Test 12/14/18 13:18 White Blood Count 7.9 # Red Blood Count 2.13 L Hemoglobin 5.9 *L Hematocrit 20.1 L Mean Corpuscular Volume 94.4 Mean Corpuscular Hemoglobin 27.7 L Mean Corpuscular Hemoglobin Concent 29.4 L Red Cell Distribution Width 15.0 H Platelet Count 324 Mean Platelet Volume 10.6 H Immature Granulocytes % 0.400 Neutrophils % 71.4 Lymphocytes % 14.5 L Monocytes % 8.1 Eosinophils % 5.3 Basophils % 0.3 Nucleated Red Blood Cells % 0.0 Immature Granulocytes # 0.030 Neutrophils # 5.7 Lymphocytes # 1.2 Monocytes # 0.6 Eosinophils # 0.4 Basophils # 0.0 Nucleated Red Blood Cells # 0.0 CC: YOLY FREEMAN MD ; Exam/Review of Systems Exam Vitals Vital Signs Date Temp Pulse Resp B/P (MAP) Pulse Ox O2 O2 Flow FiO2 Time Delivery Rate 12/14/18 87 16 96 Nasal 2.0 13:11 Cannula 12/14/18 98.0 101/52 12:08 (68) 12/13/18 27 09:45 Intake and Output 12/13/18 12/13/18 12/14/18 1515:00 23:00 07:00 IntakeIntake Total 1000 ml 1620 ml 50 ml OutputOutput Total 1600 ml BalanceBalance 1000 ml 1620 ml -1550 ml Results Result Diagram: 12/14/18 1318 12/13/18 0522 Results 24hrs Laboratory Tests Test 12/14/18 13:18 White Blood Count 7.9 # Red Blood Count 2.13 L Hemoglobin 5.9 *L Hematocrit 20.1 L Mean Corpuscular Volume 94.4 Mean Corpuscular Hemoglobin 27.7 L Mean Corpuscular Hemoglobin Concent 29.4 L Red Cell Distribution Width 15.0 H Platelet Count 324 Mean Platelet Volume 10.6 H Immature Granulocytes % 0.400 Neutrophils % 71.4 Lymphocytes % 14.5 L Monocytes % 8.1 Eosinophils % 5.3 Basophils % 0.3 Nucleated Red Blood Cells % 0.0 Immature Granulocytes # 0.030 Neutrophils # 5.7 Lymphocytes # 1.2 Monocytes # 0.6 Eosinophils # 0.4 Basophils # 0.0 Nucleated Red Blood Cells # 0.0 Medications Medication Current Medications Acetaminophen (Tylenol Tab) 650 mg Q4H PRN PO MILD PAIN LEVEL 1-3; Start 12/12/18 at 22:30 Atorvastatin Calcium (Lipitor) 40 mg QHS PO Last administered on 12/13/18at 20:42; Admin Dose 40 MG; Start 12/13/18 at 21:00 Melatonin (Melatonin) 5 mg HS PO Last administered on 12/13/18at 20:41; Admin Dose 5 MG; Start 12/13/18 at 21:00 Metoprolol Tartrate (Lopressor) 100 mg DAILY PO ; Start 12/13/18 at 09:00 Multivitamins Therapeutic (Theragran) 1 tab DAILY PO Last administered on 12/14/18 08:26; Admin Dose 1 TAB; Start 12/13/18 at 09:00 Triamcinolone Acetonide (Kenalog 0.025% Oint) 1 applic BID TOP Last administered on 12/14/18 08:27; Admin Dose 1 APPLIC; Start 12/13/18 at 09:00 Sodium Chloride 1,000 ml @ 125 mls/hr Q8H IV Last administered on 12/14/18 15:18; Admin Dose 125 MLS/HR; Start 12/12/18 at 23:00 Pantoprazole 80 mg/Sodium Chloride 100 ml @ 10 mls/hr Q10H IV Last adminis tered on 12/14/18 15:18; Admin Dose 10 MLS/HR; Start 12/12/18 at 23:00 Senna/Docusate Sodium (Senokot-S) 2 tab BID PO Last administered on 12/14/18 08:26; Admin Dose 2 TAB; Start 12/13/18 at 09:00 Hydralazine HCl (Apresoline) 25 mg Q6H PRN PO sbp>160; Start 12/12/18 at 23:00 Albuterol/ Ipratropium (Duoneb) 3 ml Q6H RESP THERAPY HHN Last administered on 12/14/18 13:10; Admin Dose 3 ML; Start 12/13/18 at 08:00 Ferric Sodium Gluconate Complex 125 mg/Sodium Chloride 110 ml @ 110 mls/hr DAILY@1300 IVPB Last administered on 12/14/18 14:01; Admin Dose 110 MLS/HR; Start 12/14/18 at 13:00; Stop 12/18/18 at 13:59 Cyanocobalamin (Vitamin B12 Inj) 1,000 mcg DAILY IM Last administered on 12/14/18 14:01; Admin Dose 1,000 MCG; Start 12/14/18 at 13:00; Stop 12/16/18 at 09:01 Copies To: CC: YOLY FREEMAN MD ; KEREN TERRELL 12/15/18 1255: Assessment/Plan Assessment/Plan Hospital Course Assessment: Anemia, acute drop in Hgb Upper GI bleeding Melena GERD hyperlipidemia Hx of stroke Hx of CHF Hx of prior [place] Patient is a Jehovah witness Plan: Patient's son refused blood transfusion as patient is [employer]hova's Witness. Continues to decline endoscopy. Discussed the need for blood transfusion in the setting of potentially life threatening anemia. GI will sign off but will be available upon reconsult as needed Patient seen in collaboration with Dr. Freeman Subjective: Patient is a Jehovah witness and declines blood transfusions. Patient resting in bed, son at bedside. Patient's son Chris declines endoscopy at this time. No c/o n/v or overt signs of GI bleed. Constitutional: alert, frail, other (somnolent) Psych: no complaints, confusion Head: normocephalic, atraumatic Eyes: nl conjunctiva, EOMI ENMT: nl external ears & nose, nl lips & teeth Neck: supple Respiratory: clear to auscultation, normal air movement Cardiovascular: regular rate and rhythm Gastrointestinal: soft, non-tender Musculoskeletal: nl extremities to inspection Neurological: other (somnolent) Skin: nl turgor, pallor Result Diagram: 12/14/18 1318 12/13/18 0522 CAITLIN SOMMERS NP Dec 14, 2018 15:31 KEREN TERRELL Dec 15, 2018 12:55
[2018-12-14 15:52] VITALS: BP 99/51; PULSE 83; RESP 18
[2018-12-14 19:33] VITALS: BP 117/56; PULSE 97; RESP 21
[2018-12-14] MEDS: ATORVASTATIN 40 MG TAB PO SCH (21:09)
[2018-12-14] MEDS: MELATONIN 5 MG TABLET PO SCH (21:09)
[2018-12-14 23:38] VITALS: BP 107/55; PULSE 91; RESP 23
[2018-12-15] MEDS: SOD CHLORIDE 0.9% 1,000 ML IV SCH ×3 (00:04→07:24)
[2018-12-15] MEDS: ALBUTEROL/IPRATROPIUM (NEB) 3 ML AMP HHN SCH ×4 (01:25→20:45)
[2018-12-15] MEDS: PANTOPRAZOLE IV 80 MG in SOD CHLORIDE 0.9% 100 ML IV SCH ×3 (01:54→22:11)
[2018-12-15 03:38] VITALS: BP 131/92; PULSE 118; RESP 21
[2018-12-15 07:15] VITALS: BP 127/80; PULSE 110; RESP 18
[2018-12-15] MEDS: CYANOCOBALAMIN 1000 MCG INJ IM SCH (08:55)
[2018-12-15] MEDS: SENNA/DOCUSATE NA (8.6MG/50MG) TAB PO SCH ×2 (08:56→21:00)
[2018-12-15] MEDS: METOPROLOL 100 MG TAB PO SCH (08:56)
[2018-12-15] MEDS: MULTIVITAMINS THERAPEUTIC TAB PO SCH (08:56)
[2018-12-15] MEDS: TRIAMCINOLONE ACET 0.025% 15 GM OINT TOP SCH ×2 (08:57→21:00)
[2018-12-15 11:51] VITALS: BP 84/50; PULSE 69; RESP 18
--- NOTE | 2018-12-15 12:05 | PN ---
Date/Time of Note Date/Time of Note DATE: 12/15/18 TIME: 12:02 Subjective Patient is alert and comfortable. His son is at the bedside. They continue to refuse transfusion Objective Vitals Vital Signs Date Temp Pulse Resp B/P (MAP) Pulse Ox O2 O2 Flow FiO2 Time Delivery Rate 12/15/18 98.5 69 18 84/50 (61) 98 11:51 12/15/18 Nasal 2.0 08:36 Cannula 12/13/18 27 09:45 Intake and Output 12/14/18 12/14/18 12/15/18 1515:00 23:00 07:00 IntakeIntake Total 480 ml 700 ml OutputOutput Total 900 ml 500 ml BalanceBalance 480 ml -200 ml -500 ml Clear to auscultation bilaterally Regular rate and rhythm Soft nontender nondistended normoactive bowel sounds No edema Moves all extremities Results Result Diagram: 12/15/18 0527 12/13/18 0522 Medications Medications Current Medications Acetaminophen (Tylenol Tab) 650 mg Q4H PRN PO MILD PAIN LEVEL 1-3; Start 12/12/18 at 22:30 Atorvastatin Calcium (Lipitor) 40 mg QHS PO Last administered on 12/14/18 21:09; Admin Dose 40 MG; Start 12/13/18 at 21:00 Melatonin (Melatonin) 5 mg HS PO Last administered on 12/14/18 21:09; Admin Dose 5 MG; Start 12/13/18 at 21:00 Metoprolol Tartrate (Lopressor) 100 mg DAILY PO Last administered on 12/15/18 08:56; Admin Dose 100 MG; Start 12/13/18 at 09:00 Multivitamins Therapeutic (Theragran) 1 tab DAILY PO Last administered on 12/15/18 08:56; Admin Dose 1 TAB; Start 12/13/18 at 09:00 Triamcinolone Acetonide (Kenalog 0.025% Oint) 1 applic BID TOP Last administered on 12/15/18 08:57; Admin Dose 1 APPLIC; Start 12/13/18 at 09:00 Sodium Chloride 1,000 ml @ 125 mls/hr Q8H IV Last administered on 12/15/18 07:24; Admin Dose 125 MLS/HR; Start 12/12/18 at 23:00 Pantoprazole 80 mg/Sodium Chloride 100 ml @ 10 mls/hr Q10H IV Last administered on 12/15/18 11:07; Admin Dose 10 MLS/HR; Start 12/12/18 at 23:00 Senna/Docusate Sodium (Senokot-S) 2 tab BID PO Last administered on 12/15/18 08:56; Admin Dose 2 TAB; Start 12/13/18 at 09:00 Hydralazine HCl (Apresoline) 25 mg Q6H PRN PO sbp>160; Start 12/12/18 at 23:00 Albuterol/ Ipratropium (Duoneb) 3 ml Q6H RESP THERAPY HHN Last administered on 12/15/18 08:33; Admin Dose 3 ML; Start 12/13/18 at 08:00 Ferric Sodium Gluconate Complex 125 mg/Sodium Chloride 110 ml @ 110 mls/hr DAILY@1300 IVPB Last administered on 12/14/18at 14:01; Admin Dose 110 MLS/HR; S tart 12/14/18 at 13:00; Stop 12/18/18 at 13:59 Cyanocobalamin (Vitamin B12 Inj) 1,000 mcg DAILY IM Last administered on 12/15/18 08:55; Admin Dose 1,000 MCG; Start 12/14/18 at 13:00; Stop 12/16/18 at 09:01 VTE Prophylaxis Risk score (from Nsg)>0 risk: 4 SCD applied (from Nsg): Yes Lines/Catheters IV Catheter Type: Saline Lock Wilkerson in Place: No Assessment/Plan Assessment/Plan 78-year-old male with GI bleed most likely upper source Acute blood loss anemia Restoration, refusing packed RBC transfusion Dehydration B12 deficiency anemia Continue supportive care Patient is not a candidate for EGD or colonoscopy due to profound anemia and refusal to receive transfusion Monitor CBC ANA BATEMAN MD Dec 15, 2018 12:05
[2018-12-15] MEDS: SOD FERRIC GLUC COMPLX 125 MG in SOD CHLORIDE 0.9% 100 ML IVPB SCH (12:45)
--- NOTE | 2018-12-15 13:01 | PN ---
Date/Time of Note Date/Time of Note DATE: 12/15/18 TIME: 13:01 Assessment/Plan VTE Prophylaxis Risk score (from Ns)>0 risk: 4 SCD applied (from Ns): Yes Pharmacological prophylaxis: NA/contraindicated Pharm contraindication: other (anemia) Lines/Catheters [facility]from [facility] Saline Lock Urinary Cath still in place: No Assessment/Plan Hospital Course Assessment: Anemia, acute drop in Hgb Upper GI bleeding Melena GERD hyperlipidemia Hx of stroke Hx of CHF Hx of prior [place] Patient is a Jehovah witness Plan: Patient's son refused blood transfusion as patient is [employer]'s Witness. Continues to decline endoscopy. Discussed the need for blood transfusion in the setting of potentially life threatening anemia. GI will sign off but will be available upon reconsult as needed Patient seen in collaboration with Dr. Freeman Subjective: Patient is a Jehovah witness and declines blood transfusions. Patient resting in bed, son at bedside. Patient's son Chris declines endoscopy at this time. No c/o n/v or overt signs of GI bleed. Constitutional: alert, frail, other (somnolent) Psych: no complaints, confusion Head: normocephalic, atraumatic Eyes: nl conjunctiva, EOMI ENMT: nl external ears & nose, nl lips & teeth Neck: supple Respiratory: clear to auscultation, normal air movement Cardiovascular: regular rate and rhythm Gastrointestinal: soft, non-tender Musculoskeletal: nl extremities to inspection Neurological: other (somnolent) Skin: nl turgor, pallor Result Diagram: 12/15/18 0527 12/13/18 0522 Results 24hrs Laboratory Tests Test 12/14/18 13:18 12/14/18 22:20 12/15/18 05:27 White Blood Count 7.9 # 8.8 Red Blood Count 2.13 L 2.10 L Hemoglobin 5.9 *L 5.8 *L Hematocrit 20.1 L 19.4 L Mean Corpuscular Volume 94.4 92.4 Mean Corpuscular Hemoglobin 27.7 L 27.6 L Mean Corpuscular Hemoglobin Concent 29.4 L 29.9 L Red Cell Distribution Width 15.0 H 15.0 H Platelet Count 324 318 Mean Platelet Volume 10.6 H 10.2 Immature Granulocytes % 0.400 0.500 H Neutrophils % 71.4 76.2 Lymphocytes % 14.5 L 10.3 L Monocytes % 8.1 6.8 Eosinophils % 5.3 5.9 Basophils % 0.3 0.3 Nucleated Red Blood Cells % 0.0 0.0 Immature Granulocytes # 0.030 0.040 H Neutrophils # 5.7 6.7 Lymphocytes # 1.2 0.9 Monocytes # 0.6 0.6 Eosinophils # 0.4 0.5 Basophils # 0.0 0.0 Nucleated Red Blood Cells # 0.0 0.0 Stool Occult Blood POSITIVE Exam/Review of Systems Exam Vitals Vital Signs Date Temp Pulse Resp B/P (MAP) Pulse Ox O2 O2 Flow FiO2 Time Delivery Rate 12/15/18 98.5 69 18 84/50 (61) 98 11:51 12/15/18 Nasal 2.0 08:36 Cannula 12/13/18 27 09:45 Intake and Output 12/14/18 12/14/18 12/15/18 1515:00 23:00 07:00 IntakeIntake Total 480 ml 700 ml OutputOutput Total 900 ml 500 ml BalanceBalance 480 ml -200 ml -500 ml Results Results 24hrs Laboratory Tests Test 12/14/18 13:18 12/14/18 22:20 12/15/18 05:27 White Blood Count 7.9 # 8.8 Red Blood Count 2.13 L 2.10 L Hemoglobin 5.9 *L 5.8 *L Hematocrit 20.1 L 19.4 L Mean Corpuscular Volume 94.4 92.4 Mean Corpuscular Hemoglobin 27.7 L 27.6 L Mean Corpuscular Hemoglobin Concent 29.4 L 29.9 L Red Cell Distribution Width 15.0 H 15.0 H Platelet Count 324 318 Mean Platelet Volume 10.6 H 10.2 Immature Granulocytes % 0.400 0.500 H Neutrophils % 71.4 76.2 Lymphocytes % 14.5 L 10.3 L Monocytes % 8.1 6.8 Eosinophils % 5.3 5.9 Basophils % 0.3 0.3 Nucleated Red Blood Cells % 0.0 0.0 Immature Granulocytes # 0.030 0.040 H Neutrophils # 5.7 6.7 Lymphocytes # 1.2 0.9 Monocytes # 0.6 0.6 Eosinophils # 0.4 0.5 Basophils # 0.0 0.0 Nucleated Red Blood Cells # 0.0 0.0 Stool Occult Blood POSITIVE Medications Medication Current Medications Acetaminophen (Tylenol Tab) 650 mg Q4H PRN PO MILD PAIN LEVEL 1-3; Start 12/12/18 at 22:30 Atorvastatin Calcium (Lipitor) 40 mg QHS PO Last administered on 12/14/18 21:09; Admin Dose 40 MG; Start 12/13/18 at 21:00 Melatonin (Melatonin) 5 mg HS PO Last administered on 12/14/18 21:09; Admin Dose 5 MG; Start 12/13/18 at 21:00 Metoprolol Tartrate (Lopressor) 100 mg DAILY PO Last administered on 12/15/18 08:56; Admin Dose 100 MG; Start 12/13/18 at 09:00 Multivitamins Therapeutic (Theragran) 1 tab DAILY PO Last administered on 12/15/18 08:56; Admin Dose 1 TAB; Start 12/13/18 at 09:00 Triamcinolone Acetonide (Kenalog 0.025% Oint) 1 applic BID TOP Last administered on 12/15/18 08:57; Admin Dose 1 APPLIC; Start 12/13/18 at 09:00 Sodium Chloride 1,000 ml @ 125 mls/hr Q8H IV Last administered on 12/15/18 07:24; Admin Dose 125 MLS/HR; Start 12/12/18 at 23:00 Pantoprazole 80 mg/Sodium Chloride 100 ml @ 10 mls/hr Q10H IV Last administered on 12/15/18 11:07; Admin Dose 10 MLS/HR; Start 12/12/18 at 23:00 Senna/Docusate Sodium (Senokot-S) 2 tab BID PO Last administered on 12/15/18 08:56; Admin Dose 2 TAB; Start 12/13/18 at 09:00 Hydralazine HCl (Apresoline) 25 mg Q6H PRN PO sbp>160; Start 12/12/18 at 23:00 Albuterol/ Ipratropium (Duoneb) 3 ml Q6H RESP THERAPY HHN Last administered on 12/15/18 08:33; Admin Dose 3 ML; Start 12/13/18 at 08:00 Ferric Sodium Gluconate Complex 125 mg/Sodium Chloride 110 ml @ 110 mls/hr DAILY@1300 IVPB Last administered on 12/15/18at 12:45; Admin Dose 110 MLS/HR; Start 12/14/18 at 13:00; Stop 12/18/18 at 13:59 Cyanocobalamin (Vitamin B12 Inj) 1,000 mcg DAILY IM Last administered on 12/15/18at 08:55; Admin Dose 1,000 MCG; Start 12/14/18 at 13:00; Stop 12/16/18 at 09:01 KEREN TERRELL Dec 15, 2018 13:01
[2018-12-15 16:23] VITALS: BP 97/64; PULSE 57; RESP 18
[2018-12-15 20:00] VITALS: BP 103/57; PULSE 88; RESP 19
[2018-12-15] MEDS: ATORVASTATIN 40 MG TAB PO SCH (21:00)
[2018-12-15] MEDS: MELATONIN 5 MG TABLET PO SCH (21:00)
[2018-12-16] VITALS: BP 111/67; PULSE 85; RESP 18
[2018-12-16] MEDS: ALBUTEROL/IPRATROPIUM (NEB) 3 ML AMP HHN SCH ×3 (02:28→13:14)
[2018-12-16 03:30] VITALS: BP 130/80; PULSE 105; RESP 19
[2018-12-16] MEDS ORDERED: FUROSEMIDE 40 MG INJ IV ONE (05:00)
[2018-12-16] MEDS: PANTOPRAZOLE IV 80 MG in SOD CHLORIDE 0.9% 100 ML IV SCH ×2 (07:00→17:00)
[2018-12-16 08:00] VITALS: BP 102/55; PULSE 104; RESP 20
[2018-12-16] MEDS: METOPROLOL 100 MG TAB PO SCH (09:00)
[2018-12-16] MEDS: MULTIVITAMINS THERAPEUTIC TAB PO SCH (09:41)
[2018-12-16] MEDS: SENNA/DOCUSATE NA (8.6MG/50MG) TAB PO SCH (09:41)
[2018-12-16] MEDS: CYANOCOBALAMIN 1000 MCG INJ IM SCH (09:42)
[2018-12-16] MEDS: TRIAMCINOLONE ACET 0.025% 15 GM OINT TOP SCH (09:42)
--- NOTE | 2018-12-16 11:19 | PDOCDIS ---
Discharge Instructions CONDITION [id number] Patient Condition: [id number] Fair HOME CARE INSTRUCTIONS: [id number] Diet Instructions: [id number] y FOLLOW UP/APPOINTMENTS Follow-up Plan pcp 1 week ANA BATEMAN MD Dec 16, 2018 11:19
[2018-12-16 11:23] VITALS: BP 91/52; PULSE 79; RESP 20
[2018-12-16] MEDS: SOD FERRIC GLUC COMPLX 125 MG in SOD CHLORIDE 0.9% 100 ML IVPB SCH (13:42)
[2018-12-16 15:49] VITALS: BP 109/74; PULSE 100; RESP 20
--- NOTE | 2018-12-16 19:01 | DS ---
DATE OF ADMISSION: 12/12/2018 DATE OF DISCHARGE: 12/16/2018 DISCHARGE DIAGNOSES: 1. An 78-year-old male with gastrointestinal bleed. 2. Acute blood loss anemia. 3. Mu-ism, refusing packed RBC transfusion. 4. History of stroke with left hemiparesis. 5. Hypertension. 6. Hyperlipidemia. 7. Gastroesophageal reflux disease. HOSPITAL COURSE: An 78-year-old gentleman presented from [facility] with an episode of un responsiveness. Initial evaluation revealed evidence of acute blood loss anemia. Initial hemoglobin was 7.6 and it dropped to 5.8. This was attributed to an upper GI bleed. The patient is a Mu-ism and refused packed RBC transfusion. He was seen in consultation b y rocket engine component mechanic. The patient was not found to be in stable condition for endoscopic evaluation due to profound anemia. I had several discussions with the patient and his son. They continued to r efuse packed RBC transfusion. Repeat hemoglobin was 6. I started Epogen therapy as well as oral iro n sulfate. The patient is in a stable condition for transition back to [facility]. His h emoglobin can be monitored at the facility. MEDICATIONS ON DISCHARGE: As follows: 1. Epogen 10,000 units subcutaneously every Saturday, Saturday, Saturday. 2. Hydralazine 25 mg every 6 hours as needed. 3. Protonix 40 mg daily. 4. Aspirin 650 mg every 4 hours as needed. 5. Lipitor 40 mg at bedtime. 6. Folic acid 0.4 mg b.i.d. 7. Melatonin 5 mg at bedtime as needed. 8. Multivitamin 1 tablet daily. Aspirin and diclofenac were discontinued due to likeliness of NSAID-induced peptic ulcer disease. Fermin doan, I explained to the patient and his son that he is at high risk of recurrent GI bleeds since we d id not establish cause of his GI bleed. They understanding the risks and benefits. Dictated By: ANA MALDONADO/ILDEFONSO Conf#: [id number] DID#: [id number] CC: BJ ESTRELLA MD; YOLY WEN;*End*
[2018-12-17] MEDS ORDERED: EPOETIN ALFA-EPBX (NON-ESRD 10,000 UNIT/ML VIAL SC SCH (17:00)
== END 2018-12-16 18:50 | DRG 378 ==
LOC: E/R 15:14 → 6WM 18:53
PROVIDERS: ADMIT Legal Medicine; ATTEND Legal Medicine
DX: K92.2 Gastrointestinal hemorrhage, unspecified (principal); I69.354 Hemiplegia and hemiparesis following cerebral infarction affecting left non-dominant side; D62 Acute posthemorrhagic anemia; K57.92 Diverticulitis of intestine, part unspecified, without perforation or abscess without bleeding; D51.3 Other dietary vitamin B12 deficiency anemia; E86.0 Dehydration; E78.5 Hyperlipidemia, unspecified; F03.90 Unspecified dementia, unspecified severity, without behavioral disturbance, psychotic disturbance, mood disturbance, and anxiety; I12.9 Hypertensive chronic kidney disease with stage 1 through stage 4 chronic kidney disease, or unspecified chronic kidney disease; N18.3 Chronic kidney disease, stage 3 (moderate); I25.10 Atherosclerotic heart disease of native coronary artery without angina pectoris; K21.9 Gastro-esophageal reflux disease without esophagitis; K92.1 Melena; Z53.1 Procedure and treatment not carried out because of patient's decision for reasons of belief and group pressure; I25.2 Old myocardial infarction; Z95.5 Presence of coronary angioplasty implant and graft; Z79.82 Long term (current) use of aspirin; Z79.02 Long term (current) use of antithrombotics/antiplatelets
CPT/HCPCS: 71045; 74176; 80048; 80053; 81001; 82270; 82607; 82746; 83540; 83605; 84484; 85025; 85610; 85730; 86850; 86900; 86901; 86920; 87045; 87086; 93005; 94640; 96374; 96375; C9113; J0692; J1940; J2543; J2916; J3370; J3420; J7030

== ENCOUNTER 2018-12-24 22:24 | Inpatient (IN) | payer OTHER ==
[~2018-12-24] VITALS: Ht 175.3 cm; Wt 69.1 kg
[~2018-12-24 22:24] MED LIST changes: -ACET-141 PO; -ASPI-817 PO; -BENA10TA4 PO; -DICL100G37 TOP; -ENOX40DI14 SC; -FAMO20TA18 PO; -LACT1CAP47 PO; -LEVO750P IV; -LORA0.5T PO; -LOSA25TA2 PO; -METO-335 PO; -METO-407 PO; -ONDA4TAB13 PO; -OXYC-279 PO; -SPIR25TA PO
[2018-12-25] MEDS ORDERED: ACETAMINOPHEN 325 MG TAB PO PRN ×2 (04:00→04:30)
[2018-12-25] MEDS ORDERED: ONDANSETRON 4 MG INJ IV PRN ×2 (04:00→04:30)
[2018-12-25] MEDS ORDERED: NACL 0.9% 3 ML SYG IV SCH (04:30)
[2018-12-25] MEDS ORDERED: ALBUTEROL/IPRATROPIUM (NEB) 3 ML AMP HHN SCH (06:00)
[2018-12-25] MEDS ORDERED: PANTOPRAZOLE (EC) 40 MG TAB PO SCH (06:00)
[2018-12-25] MEDS: ALBUTEROL/IPRATROPIUM (NEB) 3 ML AMP HHN SCH ×3 (08:34→19:17)
[2018-12-25] MEDS ORDERED: ENOXAPARIN 30 MG/0.3 ML SYG SC SCH (09:00)
[2018-12-25] MEDS: CHOLECALCIFEROL 1,000 UNIT TAB PO SCH ×2 (11:07→21:11)
[2018-12-25] MEDS: FERROUS SULFATE (EC) 325 MG TAB PO SCH ×2 (11:07→21:11)
[2018-12-25] MEDS: FOLIC ACID 0.4 MG TAB PO SCH ×2 (11:07→21:12)
[2018-12-25] MEDS: MULTIVITAMINS THERAPEUTIC TAB PO SCH (11:08)
[2018-12-25] MEDS: PANTOPRAZOLE 40 MG INJ IV SCH ×2 (12:54→21:12)
[2018-12-25] MEDS ORDERED: SOD FERRIC GLUC COMPLX 125 MG in SOD CHLORIDE 0.9% 100 ML IVPB SCH (13:00)
[2018-12-25] MEDS: CYANOCOBALAMIN 500 MCG TAB PO SCH (14:02)
[2018-12-25 18:07] VITALS: BP 112/56; PULSE 79; RESP 18
[2018-12-25 18:25] VITALS: Ht 175.3 cm; Wt 69.1 kg
[2018-12-25 20:00] VITALS: BP 109/58; PULSE 81; RESP 18
[2018-12-25] MEDS ORDERED: MELATONIN 5 MG TABLET PO SCH (21:00)
[2018-12-25] MEDS ORDERED: ATORVASTATIN 40 MG TAB PO SCH (21:00)
[2018-12-25] MEDS ORDERED: DOCUSATE SODIUM 100 MG CAP PO SCH (21:00)
[2018-12-25] MEDS ORDERED: hydrOXYzine HCL 25 MG TAB PO PRN (23:30)
[2018-12-25 23:57] VITALS: BP 114/60; PULSE 84; RESP 19
[2018-12-26] MEDS: ALBUTEROL/IPRATROPIUM (NEB) 3 ML AMP HHN SCH ×3 (01:17→13:15)
[2018-12-26 04:00] VITALS: BP 102/58; PULSE 70; RESP 20
[2018-12-26 07:07] VITALS: BP 114/65; PULSE 84; RESP 17
[2018-12-26] MEDS: FOLIC ACID 0.4 MG TAB PO SCH (08:31)
[2018-12-26] MEDS: MULTIVITAMINS THERAPEUTIC TAB PO SCH (08:31)
[2018-12-26] MEDS: PANTOPRAZOLE 40 MG INJ IV SCH (08:31)
[2018-12-26] MEDS: CHOLECALCIFEROL 1,000 UNIT TAB PO SCH (08:31)
[2018-12-26] MEDS: FERROUS SULFATE (EC) 325 MG TAB PO SCH (08:31)
[2018-12-26] MEDS: CYANOCOBALAMIN 500 MCG TAB PO SCH (08:32)
[2018-12-26 11:14] VITALS: BP 90/53; PULSE 73; RESP 18
[2018-12-26] MEDS ORDERED: EPOETIN ALFA-EPBX (NON-ESRD 10,000 UNIT/ML VIAL SC SCH (17:00)
== END 2018-12-26 15:27 | disposition home or self-care (01) | DRG 948 ==
LOC: E/R 22:24 → 6WM 12-25 03:48 → E/R 12-25 14:45
PROVIDERS: ADMIT Internal Medicine; ATTEND Internal Medicine
DX: R41.82 Altered mental status, unspecified (principal); K92.2 Gastrointestinal hemorrhage, unspecified; N17.9 Acute kidney failure, unspecified; I13.0 Hypertensive heart and chronic kidney disease with heart failure and stage 1 through stage 4 chronic kidney disease, or unspecified chronic kidney disease; I50.42 Chronic combined systolic (congestive) and diastolic (congestive) heart failure; I25.5 Ischemic cardiomyopathy; D64.9 Anemia, unspecified; I25.10 Atherosclerotic heart disease of native coronary artery without angina pectoris; D50.9 Iron deficiency anemia, unspecified; N18.9 Chronic kidney disease, unspecified; E78.5 Hyperlipidemia, unspecified; K21.9 Gastro-esophageal reflux disease without esophagitis; I25.2 Old myocardial infarction; Z98.61 Coronary angioplasty status
CPT/HCPCS: 36415; 70450; 70551; 71045; 80048; 80053; 80061; 80307; 82550; 82553; 82607; 82728; 82746; 83036; 83540; 83605; 84443; 84484; 85025; 85610; 85730; 87081; 92526; 92610; 93005; 93306; 93880; 93970; 94640; 94664; 97162; C9113; J2916